=== PATIENT | female | born 1980 | race Caucasian/White ===

== ENCOUNTER 2016-09-09 14:46 | Emergency (ER) | payer OTHER ==
[~2016-09-09] VITALS: Ht 160 cm; Wt 59.1 kg
[2016-09-09 14:47] VITALS: TEMP 36.9; Ht 160 cm; Wt 59.1 kg
[2016-09-09] MEDS ORDERED: KETOROLAC TROMETHAMINE 60 MG/2 ML VIAL IM STA (14:59)
[2016-09-09] MEDS ORDERED: HYDROmorphone INJ 1 MG/ML SYR IM STA (14:59)
[2016-09-09] MEDS ORDERED: PROMETHAZINE HCL INJ 50 MG/ML 1 ML VIAL/AMP IM ONE (15:00)
[2016-09-09] MEDS ORDERED: ONDA4TAB10 SL (15:03)
--- NOTE | 2016-09-09 15:08 | EMERGENCY ROOM VISIT NOTE ---
History First contact with patient: 14:53 Chief Complaint: HEADACHE Stated Complaint: MIGRAINE W/NAUSEA History of Present Illness The patient is a 35 year old female who presents to the Emergency Room with complaints of a migraine headache since yesterday. The patient reports nausea and vomiting yesterday, but has only had nausea today. She reports photophobia and phonophobia. The patient has a history of chronic migraines, and is seen here frequently for her migraines. She is currently in the process of switching from [facility] to the [facility] due to a change in her insurance coverage. The patient is requesting a prescription for Zofran ODT which she has run out of. She denies any recent head injury, upper respiratory infection, sinus congestion or risk of carbon monoxide exposure. She rates her headache a 9 out of 10. Past Medical/Surgical History Medical Problems: (1) Bronchitis (2) Contusion of fourth toe of right foot (3) Fracture of fourth toe, right, closed (4) Sinusitis (5) Toothache (6) Ulcer Surgical Problems: (1) Tonsillectomy and adenoidectomy Family History FH: cancer Seizures Social History Smoking Status: Current Every Day Smoker Alcohol Use: none Drug Use: none Marital Status: Housing Status: lives with roommate Occupation Status: unemployed Current/Historical Medications Scheduled Amitriptyline HCl (Amitriptyline HCl), 10 MG PO HS Levonorgestrel (Iud) (Mirena), 20 MCG INT UTER UD Multiple Vitamin (Multi Vitamin Daily), 1 TAB PO DAILY Ondasetron Odt (Zofran Odt), 4 MG SL Q6H Scheduled PRN Acetaminophen (Tylenol), 1,000 MG PO Q4H PRN for Headache or Pain Cyclobenzaprine Hcl (Flexeril), 10 MG PO HS PRN for Muscle Spasm Ibuprofen Tab (Advil), 400-800 MG PO Q6H PRN for Headache or Pain Ondasetron Odt (Zofran Odt), 4 MG SL Q8 PRN for Nausea Pseudoephedrine Hcl (Sudafed), 30-60 MG PO Q4H PRN for Headache Rizatriptan Benzoate (Rizatriptan Benzoate), 10 MG PO UD PRN for Migraine Allergies Coded Allergies: Amoxicillin (Verified Allergy, Intermediate, HIVES, 04/06/16) Penicillins (Verified Allergy, Intermediate, HIVES (AMOXIL), 04/06/16) Physical Exam Vital Signs Date Time Temp Pulse Resp B/P Pulse Ox O2 Delivery O2 Flow Rate FiO2 09/09/16 14:47 36.9 110 16 128/71 97 Room Air Physical Exam CONSTITUTIONAL: Healthy and well nourished. Alert and oriented X 3 with positive affect. HEENT: Normocephalic, atraumatic. Pupils equal, round and reactive. Patient is photophobic, precluding funduscopic exam. NECK: Full active range of motion without discomfort. RESPIRATORY: Clear to auscultation bilaterally with no wheezing, crackles, rhonchi or stridor. CARDIOVASCULAR: Regular rate and rhythm with no murmurs, rubs or gallops. GASTROINTESTINAL: Bowel sounds present in all quadrants. MUSCULOSKELETAL: Full range of motion of all joints without discomfort. INTEGUMENTARY: No rash or other significant dermatologic conditions noted. NEUROLOGIC: No focal neurologic deficits noted. Normal finger to nose test. Negative pronator drift. No ataxia with ambulation. Medical Decision & Procedures ED Course Patient history and physical exam were performed. Nurse's notes were reviewed. The patient is currently on a treatment plan of 2 narcotic injections monthly. This is her first visit of the month. The patient was administered Dilaudid 3 mg, Phenergan 50 mg and Toradol 60 mg IM. She was instructed to follow-up with her PCP/neurologist for further migraine management. She was provided a prescription for Zofran 4 mg ODT, dispensed #30 with no refills until she can see her new PCP. She may return to the emergency department as needed for progressively worsening headache, fever or other concerning neurologic symptoms. The patient was happy with plan of care, and rated her migraine a 7 out of 10 at the time of discharge. Medical Decision Patient presents to the emergency department for evaluation of a migraine headache. The patient has a history of chronic migraines, and reports that this headache is similar. At this point, I do not feel that further imaging or laboratory studies are warranted. I do not suspect intracranial bleed, abscess , meningitis, CVA/TIA or carbon monoxide poisoning. Impression Primary Impression: Migraine Departure Information Dispostion Home / Self-Care Prescriptions Ondasetron Odt (ZOFRAN ODT) 4 Mg Tab 4 MG SL Q6H for Nausea, #30 TAB Prov: Leon Mackenzie PA 09/09/16 Referrals No Doctor, Assigned (PCP) Forms HOME CARE DOCUMENTATION FORM, IMPORTANT VISIT INFORMATION Patient Instructions A Signature Page[facility] Additional Instructions Follow-up with your PCP/neurologist as needed for further migraine management. You have been provided a prescription for Zofran ODT until you can see your family doctor for further prescription management.
[2016-09-09 15:35] VITALS: BP 120/75; PULSE 99; O2SAT 98
[2017-03-18] MEDS ORDERED: AMT10 PO (14:30)
[2017-03-18] MEDS ORDERED: IMTIN5 (14:34)
[2017-03-18] MEDS ORDERED: IBUP-103 PO (14:45)
[2017-03-18] MEDS ORDERED: TYLOTC500 PO (14:45)
[2017-03-18] MEDS ORDERED: PSEU30TA64 PO (14:45)
[2017-03-18] MEDS ORDERED: MULT-884 PO (14:45)
[2017-03-18] MEDS ORDERED: CYCL10TA6 PO (15:04)
[2017-03-18] MEDS ORDERED: ASPI-390 PO (15:09)
[2017-03-18] MEDS ORDERED: ONDA4TAB10 SL (15:20)
[2017-03-18] MEDS ORDERED: LEVOIUD INT UTER (16:09)
[2017-03-18] MEDS ORDERED: RIZA1TAB11 PO (16:27)
== END 2016-09-09 15:37 | disposition home or self-care (01) ==
LOC: C.EDB 14:47 → C.EDD 15:37
DX: G43.909 Migraine, unspecified, not intractable, without status migrainosus (principal); F17.200 Nicotine dependence, unspecified, uncomplicated

== ENCOUNTER 2016-09-21 16:39 | Emergency (ER) | payer OTHER ==
[~2016-09-21] VITALS: Ht 162.6 cm; Wt 56.4 kg
[~2016-09-21 16:39] MED LIST: ONDA4TAB10 SL
[2016-09-21 16:53] VITALS: TEMP 36.8; Ht 162.6 cm; Wt 56.4 kg
[2016-09-21] MEDS ORDERED: HYDROmorphone INJ 2 MG/ML SYR/VIAL IM STA (17:02)
[2016-09-21] MEDS ORDERED: PROMETHAZINE HCL INJ 25 MG/ML 1 ML VIAL IM STA (17:02)
[2016-09-21] MEDS ORDERED: KETOROLAC TROMETHAMINE 60 MG/2 ML VIAL IM STA (17:02)
--- NOTE | 2016-09-21 17:16 | EMERGENCY ROOM VISIT NOTE ---
History First contact with patient: 16:56 Chief Complaint: HEADACHE Stated Complaint: MIGRAINE,NAUSEA History of Present Illness The patient is a 35 year old female who presents to the Emergency Room with complaints of migraine headache which started yesterday. The patient states the pain is over the entire frontal region of her head. She describes it as a "throbbing in nature". The patient denies any dizziness or visual changes. The patient does admit to nausea but denies any vomiting. The patient states the symptoms are typical for her migraine headache. She states this is not the worst headache of her life. Review of Systems 10 system review was performed and was negative unless stated otherwise history of present illness. Past Medical/Surgical History Medical Problems: (1) Bronchitis (2) Contusion of fourth toe of right foot (3) Fracture of fourth toe, right, closed (4) Sinusitis (5) Toothache (6) Ulcer Surgical Problems: (1) Tonsillectomy and adenoidectomy Family History FH: cancer Seizures Social History Smoking Status: Current Every Day Smoker Alcohol Use: none Drug Use: none Marital Status: Housing Status: lives with roommate Occupation Status: unemployed Current/Historical Medications Scheduled Amitriptyline HCl (Amitriptyline HCl), 10 MG PO HS Levonorgestrel (Iud) (Mirena), 20 MCG INT UTER UD Multiple Vitamin (Multi Vitamin Daily), 1 TAB PO DAILY Ondasetron Odt (Zofran Odt), 4 MG SL Q6H Scheduled PRN Acetaminophen (Tylenol), 1,000 MG PO Q4H PRN for Headache or Pain Cyclobenzaprine Hcl (Flexeril), 10 MG PO HS PRN for Muscle Spasm Ibuprofen Tab (Advil), 400-800 MG PO Q6H PRN for Headache or Pain Ondasetron Odt (Zofran Odt), 4 MG SL Q8 PRN for Nausea Pseudoephedrine Hcl (Sudafed), 30-60 MG PO Q4H PRN for Headache Rizatriptan Benzoate (Rizatriptan Benzoate), 10 MG PO UD PRN for Migraine Allergies Coded Allergies: Amoxicillin (Verified Allergy, Intermediate, HIVES, 04/06/16) Penicillins (Verified Allergy, Intermediate, HIVES (AMOXIL), 04/06/16) Physical Exam Vital Signs Date Time Temp Pulse Resp B/P Pulse Ox O2 Delivery O2 Flow Rate FiO2 09/21/16 16:53 36.8 93 20 113/90 98 Room Air Physical Exam GENERAL: 35-year-old white female appears lying in a darkened room in no acute distress. MENTAL STATUS: Patient is alert and oriented x3 EYES: PERRLA. EOMs intact. EARS: Canals clear. TMs without fluid level noted. NECK: Supple, no lymphadenopathy noted. No carotid bruits noted. LUNGS: Clear auscultation without wheezes rales or rhonchi. CARDIAC: Regular rate and rhythm without murmur. Pulses is full and equal throughout. ABDOMEN: Positive bowel sounds all 4 quadrants. Soft, nontender to palpation without organomegaly or masses. NEURO:Cranial nerves two through 12 intact. Cerebellar function intact with [id number]. Fine motor intact with alternating finger motions. Medical Decision & Procedures ED Course The patient was evaluated. The patient is on a 2 injection per month treatment plan for her migraine headaches. This will be her second injection of the month. The patient was given her normal regimen of Dilaudid 3 mg IM, Toradol 60 mg IM and Phenergan 50 mg IM. The patient was reevaluated was feeling better. The patient was discharged home in stable condition. Medical Decision Differential includes: Acute intracranial bleed, trauma, meningitis, encephalitis, increased intracranial pressure, mass or mass effect, facial or dental infection, temporal arteritis, CVA, TIA, acute hypertensive emergency, sinusitis, carbon monoxide exposure. The patient presented with her typical migraine headache symptoms therefore no additional diagnostic imaging was performed. Impression Primary Impression: Migraine Departure Information Dispostion Home / Self-Care Condition GOOD Referrals No Doctor, Assigned (PCP) Adriana Toscano M.D. Forms HOME CARE DOCUMENTATION FORM, IMPORTANT VISIT INFORMATION Patient Instructions ED Headache Migraine, My [facility] Additional Instructions Go home and rest in a dark room. Do not drive for the remainder of the day. Follow-up with Dr. Oliveros it symptoms persist or worsen,. Problem Qualifiers Primary Impression: Migraine
[2016-09-21 17:37] VITALS: BP 123/85; PULSE 84; O2SAT 93
[2017-03-18] MEDS ORDERED: AMT10 PO (14:30)
[2017-03-18] MEDS ORDERED: IMTIN5 (14:34)
[2017-03-18] MEDS ORDERED: TYLOTC500 PO (14:45)
[2017-03-18] MEDS ORDERED: MULT-884 PO (14:45)
[2017-03-18] MEDS ORDERED: PSEU30TA64 PO (14:45)
[2017-03-18] MEDS ORDERED: IBUP-103 PO (14:45)
[2017-03-18] MEDS ORDERED: CYCL10TA6 PO (15:04)
[2017-03-18] MEDS ORDERED: ASPI-390 PO (15:09)
[2017-03-18] MEDS ORDERED: ONDA4TAB10 SL (15:20)
[2017-03-18] MEDS ORDERED: LEVOIUD INT UTER (16:09)
[2017-03-18] MEDS ORDERED: RIZA1TAB11 PO (16:27)
== END 2016-09-21 17:38 | disposition home or self-care (01) ==
LOC: C.EDB 16:41 → C.EDD 17:38
DX: G43.909 Migraine, unspecified, not intractable, without status migrainosus (principal); F17.200 Nicotine dependence, unspecified, uncomplicated; Z87.81 Personal history of (healed) traumatic fracture; Z86.19 Personal history of other infectious and parasitic diseases; Z79.899 Other long term (current) drug therapy; Z98.890 Other specified postprocedural states; Z88.0 Allergy status to penicillin; Z88.1 Allergy status to other antibiotic agents; Z80.9 Family history of malignant neoplasm, unspecified; Z82.0 Family history of epilepsy and other diseases of the nervous system

== ENCOUNTER 2016-10-06 19:45 | Emergency (ER) | payer OTHER ==
[~2016-10-06] VITALS: Ht 160 cm; Wt 56.2 kg
[2016-10-06 19:51] VITALS: TEMP 36.8; Ht 160 cm; Wt 56.2 kg
[2016-10-06] MEDS ORDERED: KETOROLAC TROMETHAMINE 60 MG/2 ML VIAL IM STA (20:05)
[2016-10-06] MEDS ORDERED: HYDROmorphone INJ 2 MG/ML SYR/VIAL IM STA (20:05)
[2016-10-06] MEDS ORDERED: PROMETHAZINE HCL INJ 25 MG/ML 1 ML VIAL IM STA (20:05)
--- NOTE | 2016-10-06 20:10 | EMERGENCY ROOM VISIT NOTE ---
ED Visit Note First contact with patient: 19:55 CHIEF COMPLAINT: Migraine headache HISTORY OF PRESENT ILLNESS: This 35-year-old female patient presented to the emergency department via private vehicle with a gradual onset of a severe generalized headache that started last night as she was preparing for a job interview today. The patient states the migraine is similar to their typical migraines. There has been associated photophobia, phonophobia, nausea but no vomiting. The patient denies fever or chills recently, and there is no weakness or numbness of the extremities. There is no difficulty with speech or vision. No trauma to the head and no neck pain. The pain is severe, constant, and it is slowly increasing in severity. The patient rates the pain as 8/10. The patient has taken Maxalt and 3 Zofran with minimal relief. This is not the worst headache of the life and is similar to previous migraines. Patient has an upcoming appointment on October 11 with any family doctor. Her neurologist is Dr. Toscano. Previous imaging studies of the brain have been normal. REVIEW OF SYSTEMS: A review of systems was performed with positives and pertinent negatives listed in the history of present illness. All other systems were reviewed and are negative. ALLERGIES: Amoxicillin and penicillin MEDICATIONS: As noted below PMH: As noted below SOCIAL HISTORY: Patient lives at home with hyacinth. She admits to tobacco use but denies alcohol use. PHYSICAL EXAM: Vital Signs: Reviewed Nurse's notes, vital signs stable. GENERAL : 35-year-old female, who appears in pain, but non toxic in appearance and in no acute distress. MENTAL STATUS: Alert, oriented, and coherent. HEENT: Normocephalic. PERRLA. EOMI. Nares patent without nuchal rigidity. Tympanic membranes pearly melton without erythema or effusion bilaterally. Mucous membranes moist. NECK: Supple, no nuchal rigidity, nontender, no lymphadenopathy. HEART: Regular rhythm and normal rate without murmurs, ectopy, gallops, or rubs. LUNGS: Clear to auscultation bilaterally without wheezes, rales or rhonchi. No dullness to percussion. No accessory muscle use. No retractions. SKIN: Normal. NEUROLOGICAL: Pupils are round, equal and react to light. The patient moves all extremities well and the gait is normal. EMERGENCY DEPARTMENT COURSE: I examined the patient. The patient is on a 2 narcotic injection per month treatment plan for their migraines. The patient was given 3 mg of Dilaudid IM, 50 mg Phenergan, 60mg Toradol IM per their usual protocol. The differential diagnosis includes acute intracranial bleed, meningitis, encephalitis, mass or mass effect, sinusitis, infection, tumor, headache, temporal arteritis and carbon monoxide exposure, and migraine. Patient was observed for greater than 15 minutes to ensure her pulse oxygenation did not drop when unsafe level. She was monitored with continuous pulse ox. After injection she was 96% on room air. The patient was discharged home in stable condition with TAXI driving. DIAGNOSIS: Migraine headache Problem List Medical Problems: (1) Bronchitis Status: Resolved (2) Contusion of fourth toe of right foot Status: Resolved (3) Fracture of fourth toe, right, closed Status: Resolved (4) Sinusitis Status: Resolved (5) Toothache Status: Resolved (6) Ulcer Status: Resolved Surgical Problems: (1) Tonsillectomy and adenoidectomy Status: Resolved Current/Historical Medications Scheduled Amitriptyline HCl (Amitriptyline HCl), 10 MG PO HS Levonorgestrel (Iud) (Mirena), 20 MCG INT UTER UD Multiple Vitamin (Multi Vitamin Daily), 1 TAB PO DAILY Ondasetron Odt (Zofran Odt), 4 MG SL Q6H Scheduled PRN Acetaminophen (Tylenol), 1,000 MG PO Q4H PRN for Headache or Pain Cyclobenzaprine Hcl (Flexeril), 10 MG PO HS PRN for Muscle Spasm Ibuprofen Tab (Advil), 400-800 MG PO Q6H PRN for Headache or Pain Ondasetron Odt (Zofran Odt), 4 MG SL Q8 PRN for Nausea Pseudoephedrine Hcl (Sudafed), 30-60 MG PO Q4H PRN for Headache Rizatriptan Benzoate (Rizatriptan Benzoate), 10 MG PO UD PRN for Migraine Allergies Coded Allergies: Amoxicillin (Verified Allergy, Intermediate, HIVES, 04/06/16) Penicillins (Verified Allergy, Intermediate, HIVES (AMOXIL), 04/06/16) Vital Signs Date Time Temp Pulse Resp B/P Pulse Ox O2 Delivery O2 Flow Rate FiO2 10/06/16 19:51 36.8 81 18 121/85 94 Room Air Departure Information Impression Primary Impression: Headache Dispostion Home / Self-Care Condition GOOD Referrals No Doctor, Assigned (PCP) Patient Instructions My [facility] Additional Instructions You have been treated in the Emergency Department for a Headache. You have received pain medicine in the emergency department which impairs your ability to operate a vehicle. It is illegal for you to drive after receiving these medicines. For pain control, you can use the following [id number] medicines (if >12 yo): - Regular strength (325mg/tab) Tylenol (acetaminophen) 2 tabs every 4-6 hours as needed. Do not exceed 12 tablets in a 24 hour period. Avoid taking more than 4 grams (4000 mg) of Tylenol per day. This includes any other sources of acetaminophen you may take on a regular basis. - Regular strength (200 mg/tab) Advil (ibuprofen) 1-2 tabs every 4-6 hours as needed. Do not exceed a dose of 3200 mg per day. You should relax in a quiet, dark place for the rest of the day. Avoid any possible triggers including: cigarette smoke, caffeine, nicotine, chocolate, wine, beer, loud noises or music, or bright lights. You should schedule a follow-up appointment in 2-3 days with your Primary Care Provider or established Neurologist for further evaluation and treatment of your Headache. Return to the Emergency Department if your current symptoms worsen despite treatment course outlined above, or if you develop any of the following symptoms : intractable pain despite aforementioned treatment course, visual disturbances , loss of vision, unilateral weakness or facial drooping, slurring of speech, loss of coordination, or loss of consciousness. Please return to the emergency department with any new/concerning symptoms. Problem Qualifiers Primary Impression: Headache Headache chronicity pattern: acute headache Intractability: not intractable
[2016-10-06 20:37] VITALS: O2SAT 96
[2016-10-06 20:41] VITALS: BP 137/89; PULSE 77; O2SAT 96
[2017-03-18] MEDS ORDERED: AMT10 PO (14:30)
[2017-03-18] MEDS ORDERED: IMTIN5 (14:34)
[2017-03-18] MEDS ORDERED: TYLOTC500 PO (14:45)
[2017-03-18] MEDS ORDERED: PSEU30TA64 PO (14:45)
[2017-03-18] MEDS ORDERED: MULT-884 PO (14:45)
[2017-03-18] MEDS ORDERED: IBUP-103 PO (14:45)
[2017-03-18] MEDS ORDERED: CYCL10TA6 PO (15:04)
[2017-03-18] MEDS ORDERED: ASPI-390 PO (15:09)
[2017-03-18] MEDS ORDERED: ONDA4TAB10 SL (15:20)
[2017-03-18] MEDS ORDERED: LEVOIUD INT UTER (16:09)
[2017-03-18] MEDS ORDERED: RIZA1TAB11 PO (16:27)
== END 2016-10-06 20:43 | disposition home or self-care (01) ==
LOC: C.EDB 19:46 → C.EDD 20:43
DX: G43.909 Migraine, unspecified, not intractable, without status migrainosus (principal); F17.200 Nicotine dependence, unspecified, uncomplicated; Z88.0 Allergy status to penicillin; Z88.1 Allergy status to other antibiotic agents; Z87.81 Personal history of (healed) traumatic fracture; Z87.828 Personal history of other (healed) physical injury and trauma; Z86.19 Personal history of other infectious and parasitic diseases; Z79.899 Other long term (current) drug therapy; Z98.890 Other specified postprocedural states

== ENCOUNTER 2016-10-15 17:14 | Emergency (ER) | payer OTHER ==
[~2016-10-15] VITALS: Ht 162.6 cm; Wt 56.9 kg
[2016-10-15 17:18] VITALS: Ht 162.6 cm; Wt 56.9 kg
[2016-10-15] MEDS ORDERED: KETOROLAC TROMETHAMINE 60 MG/2 ML VIAL IM STA (17:47)
[2016-10-15] MEDS ORDERED: HYDROmorphone INJ 1 MG/ML SYR IM STA (17:47)
[2016-10-15] MEDS ORDERED: PROMETHAZINE HCL INJ 25 MG/ML 1 ML VIAL IM STA (17:47)
[2016-10-15 18:23] VITALS: BP 133/75; PULSE 81; TEMP 37.1; O2SAT 95
--- NOTE | 2016-10-16 00:30 | EMERGENCY ROOM VISIT NOTE ---
History First contact with patient: 17:35 Chief Complaint: HEADACHE Stated Complaint: MIGRAINE W/NAUSEA History of Present Illness The patient is a 35 year old female who presents to the Emergency Room with complaints of a migraine headache. The patient is well-known to the emergency department with history of chronic migraines. She reports that her headache started yesterday morning. Her nausea has worsened. The patient reports that she is under a lot of stress right now with a new job. She has not been sleeping well. Otherwise she reports that her headache is similar to all prior migraines, and not the worse headache of her life. She denies any recent infections, headache injury or risk of carbon monoxide exposure. She rates her headache a 9 out of 10. The patient reports that she did recently [employer] insurance, and saw all Estelle Purvis PA-C. She was provided a prescription for Imitrex nasal sprays and Wellbutrin, but has not had a chance to fill her prescriptions. Review of Systems 10 system review was performed and was negative except for pertinent positives and negatives as indicated in history of present illness Past Medical/Surgical History Medical Problems: (1) Bronchitis (2) Contusion of fourth toe of right foot (3) Fracture of fourth toe, right, closed (4) Sinusitis (5) Toothache (6) Ulcer Surgical Problems: (1) Tonsillectomy and adenoidectomy Family History FH: cancer Seizures Social History Smoking Status: Current Every Day Smoker Alcohol Use: none Drug Use: none Marital Status: Housing Status: lives with roommate Occupation Status: unemployed Current/Historical Medications Scheduled Amitriptyline HCl (Amitriptyline HCl), 10 MG PO HS Bupropion (Wellbutrin), 75 MG PO BID Levonorgestrel (Iud) (Mirena), 20 MCG INT UTER UD Multiple Vitamin (Multi Vitamin Daily), 1 TAB PO DAILY Scheduled PRN Acetaminophen (Tylenol), 1,000 MG PO Q4H PRN for Headache or Pain Cyclobenzaprine Hcl (Flexeril), 10 MG PO HS PRN for Muscle Spasm Ibuprofen Tab (Advil), 400-800 MG PO Q6H PRN for Headache or Pain Ondasetron Odt (Zofran Odt), 4 MG SL Q8 PRN for Nausea Pseudoephedrine Hcl (Sudafed), 30-60 MG PO Q4H PRN for Headache Rizatriptan Benzoate (Rizatriptan Benzoate), 10 MG PO UD PRN for Migraine Allergies Coded Allergies: Amoxicillin (Verified Allergy, Intermediate, HIVES, 04/06/16) Penicillins (Verified Allergy, Intermediate, HIVES (AMOXIL), 04/06/16) Physical Exam Vital Signs Date Time Temp Pulse Resp B/P Pulse Ox O2 Delivery O2 Flow Rate FiO2 10/15/16 18:23 37.1 81 18 133/75 95 10/15/16 17:18 37.1 81 18 133/75 95 Room Air Pain Rating (0-10): 0 Physical Exam CONSTITUTIONAL: Healthy and well nourished. Alert and oriented X 3 with positive affect. HEENT: Normocephalic, atraumatic. Pupils equal, round and reactive. Patient is photophobic, precluding funduscopic exam. NECK: Full active range of motion without discomfort. No JVD or carotid bruits. RESPIRATORY: Clear to auscultation bilaterally with no wheezing, crackles, rhonchi or stridor. CARDIOVASCULAR: Regular rate and rhythm with no murmurs, rubs or gallops. INTEGUMENTARY: No rash or other significant dermatologic conditions noted. NEUROLOGIC: No focal neurologic deficits noted. No ataxia with ambulation. Medical Decision & Procedures Medications Administered Medications (Trade) Dose Ordered Sig/Kirby Route Start Time Stop Time Status Last Admin Dose Admin Hydromorphone HCl (Dilaudid Inj) 3 mg ONE STAT IM 10/15/16 17:47 10/15/16 17:49 DC 10/15/16 18:22 3 MG Promethazine HCl (Phenergan Inj) 50 mg NOW STAT IM 10/15/16 17:47 10/15/16 17:49 DC 10/15/16 18:22 50 MG Ketorolac Tromethamine (Toradol Inj) 60 mg NOW STAT IM 10/15/16 17:47 10/15/16 17:49 DC 10/15/16 18:22 60 MG ED Course Patient history and physical exam were performed. Nurse's notes were reviewed. The patient is currently on a treatment plan of 2 narcotic injections monthly. The patient was administered Dilaudid 3 mg, Toradol 60 mg and Phenergan 50 mg IM. This is her typical dosing regimen. The patient denied any pain at the time of discharge. The patient was instructed to rest and remain hydrated. She was instructed to follow-up with Estelle Purvis for further migraine management. The patient voiced understanding of all discharge instructions, and was happy with plan of care. Medical Decision Patient presents with symptoms consistent with her usual migraine phenomenon. The patient reports that it is not the worse headache of her life. Based on history and physical exam findings, I do not suspect meningitis, CVA/TIA, intracranial bleed, abscess, thromboembolic event or carbon monoxide poisoning. Impression Primary Impression: Migraine Departure Information Dispostion Home / Self-Care Condition GOOD Referrals Estelle Purvis (PCP) Forms HOME CARE DOCUMENTATION FORM, IMPORTANT VISIT INFORMATION [facility] Instructions [facility] Additional Instructions Rest and remain well-hydrated. Follow-up with Estelle Purvis as needed for further migraine management. Problem Qualifiers Primary Impression: Migraine Migraine type: chronic without aura Status migrainosus presence: without status migrainosus Intractability: not intractable Qualified Codes: G43.709 - Chronic migraine without aura, not intractable, without status migrainosus
[2017-03-18] MEDS ORDERED: AMT10 PO (14:30)
[2017-03-18] MEDS ORDERED: IMTIN5 (14:34)
[2017-03-18] MEDS ORDERED: MULT-884 PO (14:45)
[2017-03-18] MEDS ORDERED: PSEU30TA64 PO (14:45)
[2017-03-18] MEDS ORDERED: IBUP-103 PO (14:45)
[2017-03-18] MEDS ORDERED: TYLOTC500 PO (14:45)
[2017-03-18] MEDS ORDERED: CYCL10TA6 PO (15:04)
[2017-03-18] MEDS ORDERED: ASPI-390 PO (15:09)
[2017-03-18] MEDS ORDERED: ONDA4TAB10 SL (15:20)
[2017-03-18] MEDS ORDERED: LEVOIUD INT UTER (16:09)
[2017-03-18] MEDS ORDERED: RIZA1TAB11 PO (16:27)
== END 2016-10-15 18:24 | disposition home or self-care (01) ==
LOC: C.EDB 17:15 → C.EDD 18:24
DX: G43.909 Migraine, unspecified, not intractable, without status migrainosus (principal); F17.210 Nicotine dependence, cigarettes, uncomplicated; Z87.81 Personal history of (healed) traumatic fracture; Z86.19 Personal history of other infectious and parasitic diseases; Z87.828 Personal history of other (healed) physical injury and trauma; Z98.890 Other specified postprocedural states; Z88.0 Allergy status to penicillin; Z88.1 Allergy status to other antibiotic agents

== ENCOUNTER 2016-11-04 14:07 | Emergency (ER) | payer OTHER ==
[~2016-11-04] VITALS: Ht 160 cm; Wt 57.6 kg
[2016-11-04 14:14] VITALS: TEMP 37; Ht 160 cm; Wt 57.6 kg
[2016-11-04] MEDS ORDERED: PROMETHAZINE HCL INJ 25 MG/ML 1 ML VIAL IM STA (15:17)
[2016-11-04] MEDS ORDERED: HYDROmorphone HCL 4 MG/ML SYR IM STA (15:17)
[2016-11-04] MEDS ORDERED: KETOROLAC TROMETHAMINE 60 MG/2 ML VIAL IM STA (15:17)
[2016-11-04] MEDS ORDERED: HYDR-5688 PO (15:36)
[2016-11-04] MEDS ORDERED: CIPR0.3S OP (15:36)
[2016-11-04 16:03] VITALS: BP 126/91; PULSE 81; O2SAT 96
--- NOTE | 2016-11-05 21:30 | EMERGENCY ROOM VISIT NOTE ---
ED Visit Note First contact with patient: 14:21 CHIEF COMPLAINT: Migraine headache and I poked myself in the right eye. HISTORY OF PRESENT ILLNESS: Ms. Archuleta is a 36 year-old white female who ambulates into the ED complaining of a migraine headache in the right eye injury. She reports a gradual onset of a severe migraine headache that started approximately 6 hours ago. The pain is constant and it is slowly increasing in severity. This is not the worst headache of the life and is similar to previous migraines. Currently she describes the headache as a throbbing sensation/pain in the left frontal and behind the eye areas. She rates the pain a 9/10. The pain is nonradiating. She has not identified any aggravating or alleviating factors related to the pain. She reports taking Rizatriptan, amitriptyline Migraine Excedrin without relief of pain. There is been associated light sensitivity, nausea without vomiting. She denies fevers, chills, sweats, skin eruptions, skin color changes, dizziness , lightheadedness, recent head trauma, abnormal neurological symptoms, neck pain /stiffness, chest pain, shortness of breath, abdominal pain, extremity weakness/ numbness/tingling. Additionally she reports approximately 3-4 hours ago she was trying to thin help her eyelashes by using a toothpick and accidentally poked her right eye. She reported her immediately after the injury she had some mild blurry but that has subsequently resolved. She does report currently she has a burning and throbbing sensation in the eye. She rates this discomfort 7/10. The pain is nonradiating. Her pain slightly worsens with blinking. Associated with her pain she is light sensitive and has noted some mild tearing. REVIEW OF SYSTEMS: As noted above in History of Present Illness; all body systems were reviewed with the patient and found to be negative unless noted above otherwise. PAST MEDICAL HISTORY: Migraines headaches, bronchitis, gallbladder disease, status post tonsillectomy and adenoidectomy. CURRENT MEDICATION: Medications Dose Route/Sig Max Daily Dose Days Date Category Dose Instructions Imitrex Nasal [place] (Sumatriptan Succinate) 5 Mg Aers 1 [place] NA UD PRN 11/04/16 Reported 2 SPRAYS MAX PER DAY Wellbutrin (Bupropion HCl) 75 Mg Tab 75 Mg PO BID 10/15/16 Reported Zofran Odt (Ondansetron HCl) 4 Mg Tab 4 Mg SL Q8 PRN 02/08/16 Reported Mirena (Levonorgestrel (Iud)) 20 Mcg/24 Hr Iud 20 Mcg INT UTER UD 02/03/15 Reported Amitriptyline HCl 10 Mg Tab 10 Mg PO HS 01/11/15 Reported Rizatriptan Benzoate 10 Mg Tab 10 Mg PO UD PRN 12/09/14 Reported Flexeril (Cyclobenzaprine Hcl) 10 Mg Tab 10 Mg PO HS PRN 12/04/14 Reported Sudafed (Pseudoephedrine Hcl) 30 Mg Tab 30-60 Mg PO Q4H PRN 09/13/14 Reported Multi Vitamin Daily (Multiple Vitamin) 1 Tab Tab 1 Tab PO DAILY 09/13/14 Reported Advil (Ibuprofen) 200 Mg Tab 400-800 Mg PO Q6H PRN 09/13/14 Reported Tylenol (Acetaminophen) 500 Mg Tab 1,000 Mg PO Q4H PRN 09/13/14 Reported ALLERGIES TO MEDICATION: Penicillin. SOCIAL HISTORY: Patient is not employed; she feels safe in her home environment ; she admits to tobacco use; she denies alcohol use. PHYSICAL EXAM: Vital Signs: Date Time Temp Pulse Resp B/P Pulse Ox O2 Delivery O2 Flow Rate FiO2 11/04/16 16:03 81 16 126/91 96 11/04/16 14:14 37.0 89 18 131/93 95 Room Air GENERAL: 36 year-old white female in moderate distress due to pain, afebrile and hemodynamically stable. Found lying in a darkened room. NEUROLOGIC: Awake, alert and oriented to person place and time. Answering questions appropriately and following commands. Cranial nerves II-XII grossly intact. No focal neurologic deficits noted. Normal gait. Good hand eye coordination. Short-term and long-term recall intact. SKIN: Warm, dry and pink. No rashes, lesions or soft tissue trauma noted. HEENT: Normocephalic, atraumatic. Pupils equal, round and reactive. Extraocular movements intact and there is no nystagmus. Sclera anicteric. No foreign bodies noted under the eyelids are embedded cornea. Anterior chamber is clear. On slit lamp examination with staining patient has a significant sized abrasion over the medial portion of the cornea extending from the 2 to 5 o 'clock position. visual acuity 20/25 without correction. Ears, nose and oropharynx clear. Patient is photophobic precluding funduscopic exam. NECK: Soft and supple. No tenderness through the central cervical region or cervical musculature. No nuchal rigidity. Full range of motion of the cervical spine. No carotid bruits. No JVD. THORAX: Lungs clear to auscultation and equal bilaterally with no wheezing, crackles, rhonchi or stridor and equal chest wall movements. HEART: Regular rate and rhythm with no murmurs, rubs or gallops. ABDOMEN: Soft and nontender with bowel sounds present in all quadrants; no rigidity, rebound tenderness, organomegaly or guarding. MUSCULOSKELETAL: Full range of motion of all joints without any significant discomfort and the gait is normal. ED COURSE: The patient ambulates into the emergency department as noted above. Patient is assessed with history and physical examination. Patient was given 3 mg of the Dilaudid IM, 60 mg of Toradol IM and 25 mg of Phenergan IM for the pain and nausea. Alcaine was used to anesthetize the eye for examination and an additional 2 drops of Alcaine was used prior to discharge for patient comfort. Patient was reassessed. Patient was educated about her condition and instructed on her treatment plan; she verbalized understanding and agreement with this plan. CLINICAL IMPRESSION: Migraine headache. Corneal abrasion. DECISION MAKIN-year-old female who presents for evaluation of headache and eye injury. She is afebrile, well appearing, and hemodynamically stable. She has no signs of a sinus, dental, or ear infection and no evidence of meningismus. She is neurologically intact. I do not suspect a headache to be secondary to a subarachnoid hemorrhage, meningitis, encephalitis, or intracranial mass lesion. Her eye exam shows a corneal abrasion with no change in visual acuity. DISPOSITION: Patient was discharged to home in stable condition; prior to departure she was reassessed and subjectively reported she was feeling much better and rated her discomfort 5/10 and resolution of her discomfort due to Alcaine drops. DISCHARGE INSTRUCTIONS: Migraine headache Rest at home, in a quiet darkened room and allow the medication to work for the pain. Continue to follow up current treatment plan prescribed by your physician for your migraine headaches. See your own doctor in follow-up this week for continued care and treatment. Return to the emergency department as needed for worsening/uncontrolled pain, any new abnormal neurological symptoms, fevers, in accordance with her pain management plan or any new/concerning symptoms. Corneal abrasion Patient was prescribed Ciloxan ophthalmic drops and instructed on their use. Patient was placed on a sliding pain scale of ibuprofen, acetaminophen and [place] ; appropriate narcotic precautions were discussed with the patient. Patient was encouraged to follow-up with ophthalmology or return to the ED for recheck in 36-48 hours. Patient was encouraged return the ED for worsening eye pain, visual changes, headaches, fevers, vomiting or any new/concerning symptoms.
[2017-03-18] MEDS ORDERED: AMT10 PO (14:30)
[2017-03-18] MEDS ORDERED: IMTIN5 (14:34)
[2017-03-18] MEDS ORDERED: IBUP-103 PO (14:45)
[2017-03-18] MEDS ORDERED: MULT-884 PO (14:45)
[2017-03-18] MEDS ORDERED: TYLOTC500 PO (14:45)
[2017-03-18] MEDS ORDERED: PSEU30TA64 PO (14:45)
[2017-03-18] MEDS ORDERED: CYCL10TA6 PO (15:04)
[2017-03-18] MEDS ORDERED: ASPI-390 PO (15:09)
[2017-03-18] MEDS ORDERED: ONDA4TAB10 SL (15:20)
[2017-03-18] MEDS ORDERED: LEVOIUD INT UTER (16:09)
[2017-03-18] MEDS ORDERED: RIZA1TAB11 PO (16:27)
== END 2016-11-04 16:06 | disposition home or self-care (01) ==
LOC: C.EDB 14:09 → C.EDD 16:06
DX: G43.909 Migraine, unspecified, not intractable, without status migrainosus (principal); S05.01XA Injury of conjunctiva and corneal abrasion without foreign body, right eye, initial encounter; W26.8XXA Contact with other sharp object(s), not elsewhere classified, initial encounter; Y93.89 Activity, other specified; Y99.8 Other external cause status; Z72.0 Tobacco use; Z90.89 Acquired absence of other organs

== ENCOUNTER 2016-11-17 16:38 | Emergency (ER) | payer OTHER ==
[~2016-11-17 16:38] MED LIST changes: +HYDR-5688 PO; -ONDA4TAB10 SL
[2016-11-17 16:40] VITALS: TEMP 37
[2016-11-17] MEDS ORDERED: HYDROmorphone INJ 2 MG/ML SYR/VIAL IM ONE (17:00)
[2016-11-17] MEDS ORDERED: KETOROLAC TROMETHAMINE 60 MG/2 ML VIAL IM STA (17:00)
[2016-11-17] MEDS ORDERED: PROMETHAZINE HCL INJ 50 MG/ML 1 ML VIAL/AMP IM ONE (17:00)
[2016-11-17] MEDS ORDERED: HYDROmorphone INJ 1 MG/ML SYR IM ONE (17:00)
--- NOTE | 2016-11-17 17:00 | EMERGENCY ROOM VISIT NOTE ---
ED Visit Note First contact with patient: 16:43 CHIEF COMPLAINT: Migraine headache HISTORY OF PRESENT ILLNESS: This 36-year-old female patient presented to the emergency department this evening with a gradual onset of a severe generalized headache that started this morning. The patient states the migraine is similar to their typical migraines. There has been associated photophobia, phonophobia, nausea and vomiting. The patient denies fever or chills recently, and there is no weakness or numbness of the extremities. There is no difficulty with speech or vision. No trauma to the head and no neck pain. The pain is severe, constant , and it is slowly increasing in severity. The patient rates the pain as constant and 8/10. The patient has taken Imitrex and Zofran without relief of symptoms. This is not the worst headache of the life and is similar to previous migraines. Previous imaging studies of the brain have been normal. She follows with Dr. Adriana Toscano of neurology. REVIEW OF SYSTEMS: A review of systems was performed with positives and pertinent negatives listed in the history of present illness. All other systems were reviewed and are negative. ALLERGIES: Amoxicillin, Penicillins MEDICATIONS: Reviewed and discussed with the patient. PMH: No pertinent past medical history. SOCIAL HISTORY: Patient is a 36-year-old female who lives locally. PHYSICAL EXAM: VITAL SIGNS - Vital signs and nursing notes were reviewed. GENERAL - 36-year-old female appearing her stated age who is in no acute distress. Communicates well with provider and answers questions appropriately. HEAD - Normocephalic, Atraumatic. No Reeder's Sign or Raccoon's Eyes. No depressed skull fractures palpable. EYES - PERRL with EOMI bilaterally. Sclera anicteric. Palpebral conjunctiva pink and moist with no injection noted. EARS - No deformities of external structures noted on gross examination bilaterally. No pain elicited with palpation of the tragus bilaterally. External auditory canals without discharge or otorrhea. Tympanic membranes pearly melton without retraction or bulging. NOSE - Midline and without cyanosis. No epistaxis or purulent drainage noted. Septum midline without deviation or septal hematoma noted. MOUTH/OROPHARYNX - Without perioral cyanosis. Buccal mucosa pink and moist and without leukoplakia. Tongue midline with equal elevation of palate bilaterally. No tonsillar hypertrophy, erythema, or exudates noted. NECK - Neck with FROM. Supple to palpation. No lymphadenopathy noted. No nuchal rigidity. LUNGS - Chest wall symmetric without accessory muscle use, intercostals retractions, or central cyanosis. Normal vesicular breath sounds CTA B/L. No wheezes, rales, or rhonchi appreciated. CARDIAC - RRR with S1/S2. No murmur, rubs, or gallops appreciated. EXTREMITIES - No pretibial edema present. +3/5 radial and dorsalis pedis pulses palpated throughout. FROM with no tremors, fasciculations, or clonus noted on PROM throughout. +5/5 strength noted in UE/LE bilaterally. NEUROLOGIC - Cranial nerves II through XII grossly intact. Sensory intact to light touch throughout. Patellar reflexes +2/4. Patient able to perform rapid alternating movements appropriately. Negative Romberg and Pronator Drift. Negative [id number]. PSYCH - A&Ox3 and cooperates fully with examiner. Pt is very pleasant and interacts well with examiner. EMERGENCY DEPARTMENT COURSE: I examined the patient. The patient is on a narcotic injection per month treatment plan for their migraines. The patient was given 3 mg Dilaudid, 50 mg Phenergan, and 60 mg Toradol intramuscularly per their usual protocol. The differential diagnosis includes acute intracranial bleed, meningitis, encephalitis, mass or mass effect, sinusitis, infection, tumor, headache, temporal arteritis and carbon monoxide exposure, and migraine. The patient was discharged home in stable condition with a friend driving. DIAGNOSIS: Migraine headache DISCHARGE INSTRUCTIONS & TREATMENT: You have been treated in the Emergency Department for a Headache. You have received pain medicine in the emergency department which impairs your ability to operate a vehicle. It is illegal for you to drive after receiving these medicines. For pain control, you can use the following [id number] medicines (if >12 yo): - Regular strength (325mg/tab) Tylenol (acetaminophen) 2 tabs every 4-6 hours as needed. Do not exceed 12 tablets in a 24 hour period. Avoid taking more than 4 grams (4000 mg) of Tylenol per day. This includes any other sources of acetaminophen you may take on a regular basis. - Regular strength (200 mg/tab) Advil (ibuprofen) 1-2 tabs every 4-6 hours as needed. Do not exceed a dose of 3200 mg per day. You should relax in a quiet, dark place for the rest of the day. Avoid any possible triggers including: cigarette smoke, caffeine, nicotine, chocolate, wine, beer, loud noises or music, or bright lights. You should schedule a follow-up appointment in 2-3 days with your Primary Care Provider or established Neurologist for further evaluation and treatment of your Headache. Return to the Emergency Department if your current symptoms worsen despite treatment course outlined above, or if you develop any of the following symptoms : intractable pain despite aforementioned treatment course, visual disturbances , loss of vision, unilateral weakness or facial drooping, slurring of speech, loss of coordination, or loss of consciousness. Problem List Medical Problems: (1) Bronchitis Status: Resolved (2) Contusion of fourth toe of right foot Status: Resolved (3) Fracture of fourth toe, right, closed Status: Resolved (4) Sinusitis Status: Resolved (5) Toothache Status: Resolved (6) Ulcer Status: Resolved Surgical Problems: (1) Tonsillectomy and adenoidectomy Status: Resolved Current/Historical Medications Scheduled Amitriptyline HCl (Amitriptyline HCl), 10 MG PO HS Bupropion (Wellbutrin), 75 MG PO BID Levonorgestrel (Iud) (Mirena), 20 MCG INT UTER UD Multiple Vitamin (Multi Vitamin Daily), 1 TAB PO DAILY Scheduled PRN Acetaminophen (Tylenol), 1,000 MG PO Q4H PRN for Headache or Pain Cyclobenzaprine Hcl (Flexeril), 10 MG PO HS PRN for Muscle Spasm Ibuprofen Tab (Advil), 400-800 MG PO Q6H PRN for Headache or Pain Ondasetron Odt (Zofran Odt), 4 MG SL Q8 PRN for Nausea Pseudoephedrine Hcl (Sudafed), 30-60 MG PO Q4H PRN for Headache Rizatriptan Benzoate (Rizatriptan Benzoate), 10 MG PO UD PRN for Migraine Sumatriptan Succinate (Imitrex Nasal [place]), 1 SPRAY NA UD PRN for Headache Allergies Coded Allergies: Amoxicillin (Verified Allergy, Intermediate, HIVES, 11/04/16) Penicillins (Verified Allergy, Intermediate, HIVES (AMOXIL), 11/04/16) Vital Signs Date Time Temp Pulse Resp B/P Pulse Ox O2 Delivery O2 Flow Rate FiO2 3/15/17 17:52 86 16 135/84 97 11/17/16 16:40 37.0 88 18 142/85 96 Room Air Medications Administered Medications (Trade) Dose Ordered Sig/Kirby Route Start Time Stop Time Status Last Admin Dose Admin Hydromorphone HCl (Dilaudid Inj) 2 mg NOW ONCE IM 11/17/16 17:00 11/17/16 17:02 DC 11/17/16 17:19 2 MG Hydromorphone HCl (Dilaudid Inj) 1 mg NOW ONCE IM 11/17/16 17:00 11/17/16 17:02 DC 11/17/16 17:20 1 MG Ketorolac Tromethamine (Toradol Inj) 60 mg NOW STAT IM 11/17/16 17:00 11/17/16 17:02 DC 11/17/16 17:21 60 MG Promethazine HCl (Phenergan Inj) 50 mg NOW ONCE IM 11/17/16 17:00 11/17/16 17:02 DC 11/17/16 17:22 50 MG Departure Information Impression Primary Impression: Migraine Dispostion Home / Self-Care Condition GOOD Referrals No Doctor, Assigned (PCP) Patient Instructions [facility] Additional Instructions You have been treated in the Emergency Department for a Headache. You have received pain medicine in the emergency department which impairs your ability to operate a vehicle. It is illegal for you to drive after receiving these medicines. For pain control, you can use the following [id number] medicines (if >12 yo): - Regular strength (325mg/tab) Tylenol (acetaminophen) 2 tabs every 4-6 hours as needed. Do not exceed 12 tablets in a 24 hour period. Avoid taking more than 4 grams (4000 mg) of Tylenol per day. This includes any other sources of acetaminophen you may take on a regular basis. - Regular strength (200 mg/tab) Advil (ibuprofen) 1-2 tabs every 4-6 hours as needed. Do not exceed a dose of 3200 mg per day. You should relax in a quiet, dark place for the rest of the day. Avoid any possible triggers including: cigarette smoke, caffeine, nicotine, chocolate, wine, beer, loud noises or music, or bright lights. You should schedule a follow-up appointment in 2-3 days with your Primary Care Provider or established Neurologist for further evaluation and treatment of your Headache. Return to the Emergency Department if your current symptoms worsen despite treatment course outlined above, or if you develop any of the following symptoms : intractable pain despite aforementioned treatment course, visual disturbances , loss of vision, unilateral weakness or facial drooping, slurring of speech, loss of coordination, or loss of consciousness. Problem Qualifiers Primary Impression: Migraine Migraine type: unspecified Status migrainosus presence: without status migrainosus Intractability: not intractable Qualified Codes: G43.909 - Migraine, unspecified, not intractable, without status migrainosus
[2016-11-17 17:52] VITALS: BP 135/84; PULSE 86; O2SAT 97
[2017-03-18] MEDS ORDERED: AMT10 PO (14:30)
[2017-03-18] MEDS ORDERED: IMTIN5 (14:34)
[2017-03-18] MEDS ORDERED: PSEU30TA64 PO (14:45)
[2017-03-18] MEDS ORDERED: TYLOTC500 PO (14:45)
[2017-03-18] MEDS ORDERED: IBUP-103 PO (14:45)
[2017-03-18] MEDS ORDERED: MULT-884 PO (14:45)
[2017-03-18] MEDS ORDERED: CYCL10TA6 PO (15:04)
[2017-03-18] MEDS ORDERED: ASPI-390 PO (15:09)
[2017-03-18] MEDS ORDERED: ONDA4TAB10 SL (15:20)
[2017-03-18] MEDS ORDERED: LEVOIUD INT UTER (16:09)
[2017-03-18] MEDS ORDERED: RIZA1TAB11 PO (16:27)
== END 2016-11-17 17:54 | disposition home or self-care (01) ==
LOC: C.EDB 16:39 → C.EDD 17:54
DX: G43.909 Migraine, unspecified, not intractable, without status migrainosus (principal); Z79.899 Other long term (current) drug therapy

== ENCOUNTER 2016-12-16 14:57 | Emergency (ER) | payer OTHER ==
[~2016-12-16] VITALS: Ht 160 cm; Wt 58.5 kg
[2016-12-16 15:06] VITALS: TEMP 36.9; Ht 160 cm; Wt 58.5 kg
[2016-12-16] MEDS ORDERED: PROMETHAZINE HCL INJ 25 MG/ML 1 ML VIAL IM STA (15:12)
[2016-12-16] MEDS ORDERED: KETOROLAC TROMETHAMINE 60 MG/2 ML VIAL IM STA (15:12)
[2016-12-16] MEDS ORDERED: HYDROmorphone INJ 2 MG/ML SYR/VIAL IM STA (15:12)
--- NOTE | 2016-12-16 15:24 | EMERGENCY ROOM VISIT NOTE ---
ED Visit Note First contact with patient: 15:08 CHIEF COMPLAINT: Migraine headache HISTORY OF PRESENT ILLNESS: This 36-year-old female patient presented to the emergency department with a gradual onset of a severe generalized headache that started this morning. There has been associated photophobia, phonophobia, nausea and vomiting. The patient denies fever or chills recently, and there is no weakness or numbness of the extremities. There is no difficulty with speech or vision. No trauma to the head and no neck pain. The pain is severe, constant , and it is slowly increasing in severity. The patient rates the pain as severe and 8/10. The patient has taken nothing. This is not the worst headache of the life and is similar to previous migraines. Previous imaging studies of the brain (CT scans) have been normal. REVIEW OF SYSTEMS: An 8 system review of systems was completed with positives and pertinent negatives listed in the HPI. ALLERGIES: Amoxicillin, penicillin MEDICATIONS: See nursing notes PMH: Unchanged from previous SOCIAL HISTORY: The patient is a smoker. PHYSICAL EXAM: Vital Signs: Reviewed Nurse's notes, vital signs stable. MENTAL STATUS: Alert, oriented, and coherent. In great distress from the headache. NECK : Supple, no nuchal rigidity, nontender, no lymphadenopathy. HEART: Regular rhythm and normal rate without murmurs, ectopy, gallops, or rubs. SKIN: Normal. NEUROLOGICAL: Pupils are round, equal and react to light. The optic fundi are normal and the discs are flat. EOMs are full and there is no nystagmus. The patient moves all extremities well and the gait is normal. EMERGENCY DEPARTMENT COURSE: I examined the patient. The patient is on a 2 shot per month treatment protocol. This is her first visit for the month. The patient was given 3mg IM dilaudid, 60mg IM toradol and 50mg IM phenergan with relief of their pain. The differential diagnosis includes acute intracranial bleed, meningitis, encephalitis, mass or mass effect, sinusitis, infection, tumor, headache, temporal arteritis and carbon monoxide exposure, and migraine. The patient was discharged home in stable condition with her father driving. DIAGNOSIS: Migraine headache DISCHARGE INSTRUCTIONS & TREATMENT: Rest at home, resume prescription medications. See your own doctor in follow-up. Problem List Medical Problems: (1) Bronchitis Status: Resolved (2) Contusion of fourth toe of right foot Status: Resolved (3) Fracture of fourth toe, right, closed Status: Resolved (4) Sinusitis Status: Resolved (5) Toothache Status: Resolved (6) Ulcer Status: Resolved Surgical Problems: (1) Tonsillectomy and adenoidectomy Status: Resolved Current/Historical Medications Scheduled Amitriptyline HCl (Amitriptyline HCl), 10 MG PO HS Bupropion (Wellbutrin), 75 MG PO BID Levonorgestrel (Iud) (Mirena), 20 MCG INT UTER UD Multiple Vitamin (Multi Vitamin Daily), 1 TAB PO DAILY Scheduled PRN Acetaminophen (Tylenol), 1,000 MG PO Q4H PRN for Headache or Pain Cyclobenzaprine Hcl (Flexeril), 10 MG PO HS PRN for Muscle Spasm Ibuprofen Tab (Advil), 400-800 MG PO Q6H PRN for Headache or Pain Ondasetron Odt (Zofran Odt), 4 MG SL Q8 PRN for Nausea Pseudoephedrine Hcl (Sudafed), 30-60 MG PO Q4H PRN for Headache Rizatriptan Benzoate (Rizatriptan Benzoate), 10 MG PO UD PRN for Migraine Sumatriptan Succinate (Imitrex Nasal [place]), 1 SPRAY NA UD PRN for Headache Allergies Coded Allergies: Amoxicillin (Verified Allergy, Intermediate, HIVES, 11/04/16) Penicillins (Verified Allergy, Intermediate, HIVES (AMOXIL), 11/04/16) Vital Signs Date Time Temp Pulse Resp B/P Pulse Ox O2 Delivery O2 Flow Rate FiO2 12/16/16 16:06 72 15 120/80 97 12/16/16 15:06 36.9 75 18 124/85 96 Room Air Medications Administered Medications (Trade) Dose Ordered Sig/Kirby Route Start Time Stop Time Status Last Admin Dose Admin Hydromorphone HCl (Dilaudid Inj) 3 mg NOW STAT IM 12/16/16 15:12 12/16/16 15:14 DC 12/16/16 15:38 3 MG Promethazine HCl (Phenergan Inj) 50 mg NOW STAT IM 12/16/16 15:12 12/16/16 15:14 DC 12/16/16 15:36 50 MG Ketorolac Tromethamine (Toradol Inj) 60 mg NOW STAT IM 12/16/16 15:12 12/16/16 15:14 DC 12/16/16 15:37 60 MG Departure Information Impression Primary Impression: Migraine Referrals Case, Sonam Tena (PCP) Patient Instructions [facility]
[2016-12-16 16:06] VITALS: BP 120/80; PULSE 72; O2SAT 97
[2017-03-18] MEDS ORDERED: AMT10 PO (14:30)
[2017-03-18] MEDS ORDERED: IMTIN5 (14:34)
[2017-03-18] MEDS ORDERED: MULT-884 PO (14:45)
[2017-03-18] MEDS ORDERED: IBUP-103 PO (14:45)
[2017-03-18] MEDS ORDERED: PSEU30TA64 PO (14:45)
[2017-03-18] MEDS ORDERED: TYLOTC500 PO (14:45)
[2017-03-18] MEDS ORDERED: CYCL10TA6 PO (15:04)
[2017-03-18] MEDS ORDERED: ASPI-390 PO (15:09)
[2017-03-18] MEDS ORDERED: ONDA4TAB10 SL (15:20)
[2017-03-18] MEDS ORDERED: LEVOIUD INT UTER (16:09)
[2017-03-18] MEDS ORDERED: RIZA1TAB11 PO (16:27)
== END 2016-12-16 16:08 | disposition home or self-care (01) ==
LOC: C.EDB 14:59 → C.EDD 16:08
DX: G43.909 Migraine, unspecified, not intractable, without status migrainosus (principal); F17.200 Nicotine dependence, unspecified, uncomplicated

== ENCOUNTER 2016-12-20 17:49 | Emergency (ER) | payer OTHER ==
[~2016-12-20] VITALS: Ht 160 cm; Wt 58.0 kg
[2016-12-20 17:51] VITALS: TEMP 36.9; Ht 160 cm; Wt 58.0 kg
[2016-12-20] MEDS ORDERED: HYDROmorphone HCL 4 MG/ML SYR IM STA (18:10)
[2016-12-20] MEDS ORDERED: PROMETHAZINE HCL INJ 25 MG/ML 1 ML VIAL IM STA (18:10)
[2016-12-20] MEDS ORDERED: KETOROLAC TROMETHAMINE 60 MG/2 ML VIAL IM STA (18:10)
[2016-12-20] MEDS ORDERED: HYDROmorphone INJ 1 MG/ML SYR ONE (18:24)
[2016-12-20] MEDS ORDERED: HYDROmorphone INJ 2 MG/ML SYR/VIAL ONE (18:24)
--- NOTE | 2016-12-20 18:43 | EMERGENCY ROOM VISIT NOTE ---
ED Visit Note First contact with patient: 17:55 CHIEF COMPLAINT: Migraine headache today, right fourth toe injury just prior to arrival HISTORY OF PRESENT ILLNESS: Patient is a 36-year-old white female who presents to the emergency department for evaluation of a migraine headache that started today. She took her usual medications without relief of her symptoms. She rates her pain a 8/10. She is under the care of neurology and her PCP. She has been keeping a headache log and has been taking Wellbutrin and using Imitrex nasal spray. The patient states the migraine is similar to their typical migraines, with associated nausea and photophobia without vomiting. She states her stomach is upset. No facial swelling or fever. No posterior neck pain or stiffness. Denies weakness or numbness of the extremities. There is no difficulty with coordination speech or vision. No trauma to the head and no neck pain. Patient states that she was a little off balance because of her headache and was walking in bare feet and stubbed her right foot on her bed frame. She notes pain, swelling, bruising and slight deformity of the right fourth toe. She tried to ice it and took ibuprofen immediately, but it upset her stomach. REVIEW OF SYSTEMS: Review of systems as per HPI. All other systems reviewed were negative. 10 systems reviewed. PMH: Electronic medical records are reviewed and summarized as above/below. See Problem List. SOCIAL HISTORY: Lives locally with family. Smoker. PHYSICAL EXAM: Vital Signs: Reviewed Nurse's notes. General Appearance: Patient is a well-appearing 36-year-old white female who is awake and alert and in no acute distress. Eyes: Pupils equal round reactive to light extraocular muscles are intact, no proptosis, mild photophobia ENT: Oropharynx is clear, mucous membranes are moist, tympanic membranes are clear bilaterally, no sinus tenderness. Neck: Supple, no cervical lymphadenopathy, no meningismus Heart: Regular rate and rhythm, S1 and S2 Lungs: Clear to auscultation bilaterally, no wheezes Rales or rhonchi, no increased work of breathing Abdomen: Soft nontender nondistended. Normal active bowel sounds. No rebound. No guarding. Back: No midline tenderness to palpation. : No CVA tenderness to palpation. Skin: Warm, no diaphoresis, no rashes. Extremities: Examination of the right foot shows slight ecchymosis and lateral deviation of the left fourth toe. Toe is tender to palpation. Skin is intact. No cyanosis, clubbing, or edema Neurologic: Patient is awake alert, and oriented x 3. Cranial nerves 2-12 are grossly intact. Motor 5 out of 5 strength bilateral upper extremities and lower extremities. No gross sensory deficits. Reflexes are 2+ throughout. EMERGENCY DEPARTMENT COURSE: The patient was seen and assessed as above. Old records were reviewed. This is her second visit for the month of December. The patient is on a 2 narcotic injection per month treatment plan for their migraines. She is requesting her second injection for the month today. The patient was given 3 mg IM Dilaudid, Toradol 60 mg and and 50 mg IM Phenergan per their usual protocol. She was discharged to home to rest. Family members are driving. With regards to her foot, clinically she has suffered a fracture of the right fourth toe. It was not felt that radiographs were necessary. Toes were roni taped and she was placed in a postoperative shoe. Supportive care measures were discussed. The differential diagnosis includes acute intracranial bleed, meningitis, encephalitis, mass or mass effect, sinusitis, dental abscess, facial cellulitis , infection, tumor, headache, temporal arteritis and carbon monoxide exposure, and migraine. The patient was discharged home in stable condition. Problem List Medical Problems: (1) Bronchitis Status: Resolved (2) Contusion of fourth toe of right foot Status: Resolved (3) Fracture of fourth toe, right, closed Status: Resolved (4) Sinusitis Status: Resolved (5) Toothache Status: Resolved (6) Ulcer Status: Resolved Surgical Problems: (1) Tonsillectomy and adenoidectomy Status: Resolved Current/Historical Medications Scheduled Amitriptyline HCl (Amitriptyline HCl), 10 MG PO HS Bupropion (Wellbutrin), 75 MG PO BID Levonorgestrel (Iud) (Mirena), 20 MCG INT UTER UD Multiple Vitamin (Multi Vitamin Daily), 1 TAB PO DAILY Scheduled PRN Acetaminophen (Tylenol), 1,000 MG PO Q4H PRN for Headache or Pain Cyclobenzaprine Hcl (Flexeril), 10 MG PO HS PRN for Muscle Spasm Ibuprofen Tab (Advil), 400-800 MG PO Q6H PRN for Headache or Pain Ondasetron Odt (Zofran Odt), 4 MG SL Q8 PRN for Nausea Pseudoephedrine Hcl (Sudafed), 30-60 MG PO Q4H PRN for Headache Rizatriptan Benzoate (Rizatriptan Benzoate), 10 MG PO UD PRN for Migraine Sumatriptan Succinate (Imitrex Nasal [place]), 1 SPRAY NA UD PRN for Headache Allergies Coded Allergies: Amoxicillin (Verified Allergy, Intermediate, HIVES, 12/20/16) Penicillins (Verified Allergy, Intermediate, HIVES (AMOXIL), 12/20/16) Vital Signs Date Time Temp Pulse Resp B/P Pulse Ox O2 Delivery O2 Flow Rate FiO2 12/20/16 18:59 79 16 148/69 96 12/20/16 17:51 36.9 81 16 155/85 94 Room Air Medications Administered Medications (Trade) Dose Ordered Sig/Kirby Route Start Time Stop Time Status Last Admin Dose Admin Ketorolac Tromethamine (Toradol Inj) 60 mg NOW STAT IM 12/20/16 18:10 12/20/16 18:13 DC 12/20/16 18:21 60 MG Promethazine HCl (Phenergan Inj) 50 mg NOW STAT IM 12/20/16 18:10 12/20/16 18:13 DC 12/20/16 18:21 50 MG Hydromorphone HCl (Dilaudid Inj) 1 mg STK-MED ONCE .ROUTE 12/20/16 18:24 12/20/16 18:25 DC 12/20/16 18:22 1 MG Hydromorphone HCl (Dilaudid Inj) 2 mg STK-MED ONCE .ROUTE 12/20/16 18:24 12/20/16 18:25 DC 12/20/16 18:22 2 MG Departure Information Impression Primary Impression: Headache Additional Impression: Toe fracture, right Referrals Estelle Purvis (PCP) Patient Instructions My [facility] Additional Instructions DO NOT drive, drink alcohol, operate machinery, or perform dangerous activities today. You were given medications in the ER that can affect your ability to safely function or operate a vehicle. Rest today in a quiet, peaceful, dark environment and get a full 8-10 hrs of sleep tonight. Avoid loud noises, smoke/smoking, alcohol, bright lights, stress, or physical exertion today to minimize the chance the headache may return. Continue current medications. Ibuprofen(Motrin, Advil) may be used for fever or pain. Use 600mg every six hours as needed. Take with food. Avoid using more than 2400mg in a 24 hour period. Do not use 2400mg per day for more than three consecutive days without physician direction. Prolonged inappropriate use can lead to stomach upset or ulcers. (AND/OR) Acetaminophen(Tylenol) may be used for fever or pain. Use 1000mg every six hours as needed. Avoid using more than 3000mg in a 24 hour period. Wear postoperative shoe and roni tape toes together for support until pain subsides. May resume normal activity and wear normal shoes as pain allows. Return to the ER for passing out, worsening headache, vision problems, neck stiffness/pain, fevers, vomiting, worsening of your condition, or as needed. Follow up with your primary physician in 2-3 days for a recheck of your current condition. Problem Qualifiers
[2016-12-20 18:59] VITALS: BP 148/69; PULSE 79; O2SAT 96
[2017-03-18] MEDS ORDERED: AMT10 PO (14:30)
[2017-03-18] MEDS ORDERED: IMTIN5 (14:34)
[2017-03-18] MEDS ORDERED: TYLOTC500 PO (14:45)
[2017-03-18] MEDS ORDERED: IBUP-103 PO (14:45)
[2017-03-18] MEDS ORDERED: PSEU30TA64 PO (14:45)
[2017-03-18] MEDS ORDERED: MULT-884 PO (14:45)
[2017-03-18] MEDS ORDERED: CYCL10TA6 PO (15:04)
[2017-03-18] MEDS ORDERED: ASPI-390 PO (15:09)
[2017-03-18] MEDS ORDERED: ONDA4TAB10 SL (15:20)
[2017-03-18] MEDS ORDERED: LEVOIUD INT UTER (16:09)
[2017-03-18] MEDS ORDERED: RIZA1TAB11 PO (16:27)
== END 2016-12-20 19:01 | disposition home or self-care (01) ==
LOC: C.EDB 17:50 → C.EDD 19:01
DX: R51 Headache (principal); S92.911A Unspecified fracture of right toe(s), initial encounter for closed fracture; W22.8XXA Striking against or struck by other objects, initial encounter; F17.200 Nicotine dependence, unspecified, uncomplicated; Z87.81 Personal history of (healed) traumatic fracture; Z87.828 Personal history of other (healed) physical injury and trauma; Z79.899 Other long term (current) drug therapy; Z88.0 Allergy status to penicillin; Z88.1 Allergy status to other antibiotic agents

== ENCOUNTER 2017-01-08 14:40 | Emergency (ER) | payer OTHER ==
[~2017-01-08] VITALS: Ht 160 cm; Wt 60.4 kg
[2017-01-08 14:45] VITALS: TEMP 36.9; Ht 160 cm; Wt 60.4 kg
[2017-01-08] MEDS ORDERED: KETOROLAC TROMETHAMINE 60 MG/2 ML VIAL IM STA (15:27)
[2017-01-08] MEDS ORDERED: PROMETHAZINE HCL INJ 25 MG/ML 1 ML VIAL IM STA (15:27)
[2017-01-08] MEDS ORDERED: HYDROmorphone HCL 4 MG/ML SYR IM STA (15:27)
--- NOTE | 2017-01-08 15:31 | EMERGENCY ROOM VISIT NOTE ---
ED Visit Note First contact with patient: 15:02 CHIEF COMPLAINT: Migraine headache 2 days HISTORY OF PRESENT ILLNESS: Patient is a 36-year-old white female who presents to the emergency department for evaluation of a migraine headache that started yesterday evening. She took her usual medications including Zofran and Excedrin without relief of her symptoms. She rates her pain a 8/10. She is under the care of neurology and her PCP. The patient states the migraine is similar to their typical migraines, with associated nausea and photophobia without vomiting. She states her stomach is upset. No facial swelling or fever. No posterior neck pain or stiffness. Denies weakness or numbness of the extremities. There is no difficulty with coordination speech or vision. No trauma to the head and no neck pain. REVIEW OF SYSTEMS: Review of systems as per HPI. All other systems reviewed were negative. 10 systems reviewed. PMH: Electronic medical records are reviewed and summarized as above/below. See Problem List. SOCIAL HISTORY: Lives locally with family. Smoker. PHYSICAL EXAM: Vital Signs: Reviewed Nurse's notes. General Appearance: Patient is a well-appearing 36-year-old white female who is awake and alert and in no acute distress. Eyes: Pupils equal round reactive to light extraocular muscles are intact, no proptosis, mild photophobia ENT: Oropharynx is clear, mucous membranes are moist, tympanic membranes are clear bilaterally, no sinus tenderness. Neck: Supple, no cervical lymphadenopathy, no meningismus Heart: Regular rate and rhythm, S1 and S2 Lungs: Clear to auscultation bilaterally, no wheezes Rales or rhonchi, no increased work of breathing Abdomen: Soft nontender nondistended. Normal active bowel sounds. No rebound. No guarding. Back: No midline tenderness to palpation. : No CVA tenderness to palpation. Skin: Warm, no diaphoresis, no rashes. Extremities: No cyanosis, clubbing, or edema Neurologic: Patient is awake alert, and oriented x 3. Cranial nerves 2-12 are grossly intact. Motor 5 out of 5 strength bilateral upper extremities and lower extremities. No gross sensory deficits. Reflexes are 2+ throughout. EMERGENCY DEPARTMENT COURSE: The patient was seen and assessed as above. Old records were reviewed. This is her first visit for the month of January. The patient is on a 2 narcotic injection per month treatment plan for their migraines. She is requesting her first injection for the month today. The patient was given 3 mg IM Dilaudid, Toradol 60 mg and and 50 mg IM Phenergan per their usual protocol. She was discharged to home to rest. Father is driving. She rated her pain an 8/10 at discharge. The differential diagnosis includes acute intracranial bleed, meningitis, encephalitis, mass or mass effect, sinusitis, dental abscess, facial cellulitis , infection, tumor, headache, temporal arteritis and carbon monoxide exposure, and migraine. The patient was discharged home in stable condition. Problem List Medical Problems: (1) Bronchitis Status: Resolved (2) Contusion of fourth toe of right foot Status: Resolved (3) Fracture of fourth toe, right, closed Status: Resolved (4) Sinusitis Status: Resolved (5) Toothache Status: Resolved (6) Ulcer Status: Resolved Surgical Problems: (1) Tonsillectomy and adenoidectomy Status: Resolved Current/Historical Medications Scheduled Amitriptyline HCl (Amitriptyline HCl), 10 MG PO HS Bupropion (Wellbutrin), 75 MG PO BID Levonorgestrel (Iud) (Mirena), 20 MCG INT UTER UD Multiple Vitamin (Multi Vitamin Daily), 1 TAB PO DAILY Scheduled PRN Acetaminophen (Tylenol), 1,000 MG PO Q4H PRN for Headache or Pain Jltdbzy-Spheuixbvxclv-Zhysdoxw (Excedrin Migraine), 1 TAB PO UD PRN for Migraine Cyclobenzaprine Hcl (Flexeril), 10 MG PO HS PRN for Muscle Spasm Ibuprofen Tab (Advil), 400-800 MG PO Q6H PRN for Headache or Pain Ondasetron Odt (Zofran Odt), 4 MG SL Q8 PRN for Nausea Pseudoephedrine Hcl (Sudafed), 30-60 MG PO Q4H PRN for Headache Rizatriptan Benzoate (Rizatriptan Benzoate), 10 MG PO UD PRN for Migraine Sumatriptan Succinate (Imitrex Nasal [place]), 1 SPRAY NA UD PRN for Headache Allergies Coded Allergies: Amoxicillin (Verified Allergy, Intermediate, HIVES, 12/20/16) Penicillins (Verified Allergy, Intermediate, HIVES (AMOXIL), 12/20/16) Vital Signs Date Time Temp Pulse Resp B/P Pulse Ox O2 Delivery O2 Flow Rate FiO2 01/08/17 15:56 70 16 176/80 96 01/08/17 14:45 36.9 70 16 119/82 96 Room Air Medications Administered Medications (Trade) Dose Ordered Sig/Kirby Route Start Time Stop Time Status Last Admin Dose Admin Ketorolac Tromethamine (Toradol Inj) 60 mg NOW STAT IM 01/08/17 15:27 01/08/17 15:29 DC 01/08/17 15:55 60 MG Promethazine HCl (Phenergan Inj) 50 mg NOW STAT IM 01/08/17 15:27 01/08/17 15:29 DC 01/08/17 15:54 50 MG Hydromorphone HCl (Dilaudid Inj) 1 mg STK-MED ONCE .ROUTE 01/08/17 15:39 01/08/17 15:40 DC 01/08/17 15:55 1 MG Hydromorphone HCl (Dilaudid Inj) 2 mg STK-MED ONCE .ROUTE 01/08/17 15:39 01/08/17 15:40 DC 01/08/17 15:56 2 MG Departure Information Impression Primary Impression: Headache Referrals Estelle Purvis (PCP) Patient Instructions My [facility] Additional Instructions DO NOT drive, drink alcohol, operate machinery, or perform dangerous activities today. You were given medications in the ER that can affect your ability to safely function or operate a vehicle. Rest today in a quiet, peaceful, dark environment and get a full 8-10 hrs of sleep tonight. Avoid loud noises, smoke/smoking, alcohol, bright lights, stress, or physical exertion today to minimize the chance the headache may return. Continue current medications. Return to the ER for passing out, worsening headache, vision problems, neck stiffness/pain, fevers, vomiting, worsening of your condition, or as needed. Follow up with your primary physician in 2-3 days for a recheck of your current condition.
[2017-01-08] MEDS ORDERED: HYDROmorphone INJ 2 MG/ML SYR/VIAL ONE (15:39)
[2017-01-08] MEDS ORDERED: HYDROmorphone INJ 1 MG/ML SYR ONE (15:39)
[2017-01-08 15:56] VITALS: BP 176/80; PULSE 70; O2SAT 96
[2017-03-18] MEDS ORDERED: AMT10 PO (14:30)
[2017-03-18] MEDS ORDERED: IMTIN5 (14:34)
[2017-03-18] MEDS ORDERED: TYLOTC500 PO (14:45)
[2017-03-18] MEDS ORDERED: IBUP-103 PO (14:45)
[2017-03-18] MEDS ORDERED: MULT-884 PO (14:45)
[2017-03-18] MEDS ORDERED: PSEU30TA64 PO (14:45)
[2017-03-18] MEDS ORDERED: CYCL10TA6 PO (15:04)
[2017-03-18] MEDS ORDERED: ASPI-390 PO (15:09)
[2017-03-18] MEDS ORDERED: ONDA4TAB10 SL (15:20)
[2017-03-18] MEDS ORDERED: LEVOIUD INT UTER (16:09)
[2017-03-18] MEDS ORDERED: RIZA1TAB11 PO (16:27)
== END 2017-01-08 15:58 | disposition home or self-care (01) ==
LOC: C.EDB 14:41 → C.EDD 15:58
DX: R51 Headache (principal); F17.200 Nicotine dependence, unspecified, uncomplicated; Z79.899 Other long term (current) drug therapy

== ENCOUNTER 2017-01-18 16:22 | Emergency (ER) | payer OTHER ==
[~2017-01-18] VITALS: Ht 160 cm; Wt 58.6 kg
[2017-01-18 16:27] VITALS: TEMP 36.7; Ht 160 cm; Wt 58.6 kg
[2017-01-18] MEDS ORDERED: KETOROLAC TROMETHAMINE 60 MG/2 ML VIAL IM STA (16:32)
[2017-01-18] MEDS ORDERED: HYDROmorphone HCL 4 MG/ML SYR IM STA (16:32)
[2017-01-18] MEDS ORDERED: PROMETHAZINE HCL INJ 50 MG/ML 1 ML VIAL/AMP IM STA (16:32)
[2017-01-18] MEDS ORDERED: HYDROmorphone INJ 1 MG/ML SYR ONE (16:40)
[2017-01-18] MEDS ORDERED: HYDROmorphone INJ 2 MG/ML SYR/VIAL ONE (16:40)
--- NOTE | 2017-01-18 16:44 | EMERGENCY ROOM VISIT NOTE ---
History Report prepared by Abhilash: Seema Hogue Under the Supervision of: Dr. Ivan Suarez M.D. First contact with patient: 16:29 Chief Complaint: HEADACHE Stated Complaint: MIGRAINE, NAUSEA History of Present Illness The patient is a 36 year old female who presents to the Emergency Room with complaints of persistent severe headache starting this morning. The pain is present in the left side of her head and behind her eyes. She has a history of migraines. Her current headache feels like her typical migraine. She reports nausea. She denies any fever. She denies any head injury. Source of History: patient Onset: this morning Position: head Quality: ache Timing: other (persistent) Associated Symptoms: + nausea, No fevers Review of Systems See HPI for pertinent positives & negatives. A total of 10 systems reviewed and were otherwise negative. Past Medical & Surgical Medical Problems: (1) Bronchitis (2) Contusion of fourth toe of right foot (3) Fracture of fourth toe, right, closed (4) Sinusitis (5) Toothache (6) Ulcer Surgical Problems: (1) Tonsillectomy and adenoidectomy Family History FH: cancer Seizures Social History Smoking Status: Current Every Day Smoker Alcohol Use: none Drug Use: none Marital Status: Housing Status: lives with roommate Occupation Status: unemployed Current/Historical Medications Scheduled Amitriptyline HCl (Amitriptyline HCl), 10 MG PO HS Bupropion (Wellbutrin), 75 MG PO BID Levonorgestrel (Iud) (Mirena), 20 MCG INT UTER UD Multiple Vitamin (Multi Vitamin Daily), 1 TAB PO DAILY Scheduled PRN Acetaminophen (Tylenol), 1,000 MG PO Q4H PRN for Headache or Pain Zstpmxi-Bhehxgmpuewyq-Npifvcew (Excedrin Migraine), 1 TAB PO UD PRN for Migraine Cyclobenzaprine Hcl (Flexeril), 10 MG PO HS PRN for Muscle Spasm Ibuprofen Tab (Advil), 400-800 MG PO Q6H PRN for Headache or Pain Ondasetron Odt (Zofran Odt), 4 MG SL Q8 PRN for Nausea Pseudoephedrine Hcl (Sudafed), 30-60 MG PO Q4H PRN for Headache Rizatriptan Benzoate (Rizatriptan Benzoate), 10 MG PO UD PRN for Migraine Sumatriptan Succinate (Imitrex Nasal [place]), 1 SPRAY NA UD PRN for Headache Allergies Coded Allergies: Amoxicillin (Verified Allergy, Intermediate, HIVES, 01/18/17) Penicillins (Verified Allergy, Intermediate, HIVES (AMOXIL), 01/18/17) Physical Exam Vital Signs Date Time Temp Pulse Resp B/P Pulse Ox O2 Delivery O2 Flow Rate FiO2 01/18/17 16:27 36.7 77 18 109/88 96 Room Air Physical Exam GENERAL: Patient is in no acute distress. HEENT: No acute trauma, normocephalic atraumatic, mucous membranes moist, no nasal congestion, no scleral icterus. Pupils equal and reactive to light. NECK: No stridor, no adenopathy, no meningismus, trachea is midline. LUNGS: Clear to auscultation bilaterally, no wheeze, no rhonchi, breath sounds equal. HEART: Without murmurs gallops or rubs, regular rate and rhythm. ABDOMEN: Soft, nontender, bowel sounds positive, no hernias, no peritonitis. EXTREMITIES: No cyanosis or edema, full range of motion of all the joints without pain or difficulty, no signs for acute trauma. NEUROLOGIC: Oriented x 3, no acute motor or sensory deficits, no focal weakness. No cerebellar deficits. SKIN: No rash, no jaundice, no diaphoresis Medical Decision & Procedures ED Course 1631: The patient was evaluated in room D1B. A complete history and physical exam was performed. 1632: Toradol Inj 60 mg IM, Phenergan Inj 50 mg IM, Dilaudid Inj 3 mg IM. 1640: I reevaluated the patient. She is resting comfortably. I discussed results and discharge instructions: she verbalized understanding and agreement. The patient is ready for discharge. Medical Decision Differential diagnosis: migraine, tension headache, intracranial bleeding, meningitis, head trauma, viral illness. The patient presents with a left-sided headache. She has a history of migraines and this headache feels similar. There is been no fever or head trauma. She has no arm or leg numbness. Her neurologic exam is normal and nonfocal. She does not have meningismus, she is not toxic in appearance. The patient received her typical IM Dilaudid, IM Toradol and IM Phenergan. She has done well with these medications before. She is being discharged. Her headache does seem migrainous. Impression Primary Impression: Headache Scribe Attestation The scribe's documentation has been prepared under my direction and personally reviewed by me in its entirety. I confirm that the note above accurately reflects all work, treatment, procedures, and medical decision making performed by me. Departure Information Dispostion Home / Self-Care Referrals No Doctor, Assigned (PCP) Forms HOME CARE DOCUMENTATION FORM, IMPORTANT VISIT INFORMATION Patient Instructions My [facility] Additional Instructions fluids rest sleep return if worsening
[2017-01-18 16:53] VITALS: BP 112/73; PULSE 78; O2SAT 98
[2017-03-18] MEDS ORDERED: AMT10 PO (14:30)
[2017-03-18] MEDS ORDERED: IMTIN5 (14:34)
[2017-03-18] MEDS ORDERED: IBUP-103 PO (14:45)
[2017-03-18] MEDS ORDERED: MULT-884 PO (14:45)
[2017-03-18] MEDS ORDERED: PSEU30TA64 PO (14:45)
[2017-03-18] MEDS ORDERED: TYLOTC500 PO (14:45)
[2017-03-18] MEDS ORDERED: CYCL10TA6 PO (15:04)
[2017-03-18] MEDS ORDERED: ASPI-390 PO (15:09)
[2017-03-18] MEDS ORDERED: ONDA4TAB10 SL (15:20)
[2017-03-18] MEDS ORDERED: LEVOIUD INT UTER (16:09)
[2017-03-18] MEDS ORDERED: RIZA1TAB11 PO (16:27)
== END 2017-01-18 16:54 | disposition home or self-care (01) ==
LOC: C.EDB 16:23 → C.EDD 16:54
DX: R51 Headache (principal); Z87.828 Personal history of other (healed) physical injury and trauma; Z86.73 Personal history of transient ischemic attack (TIA), and cerebral infarction without residual deficits; F17.200 Nicotine dependence, unspecified, uncomplicated; Z86.19 Personal history of other infectious and parasitic diseases; Z79.899 Other long term (current) drug therapy; Z88.1 Allergy status to other antibiotic agents; Z79.82 Long term (current) use of aspirin; Z88.0 Allergy status to penicillin; Z98.890 Other specified postprocedural states; Z80.9 Family history of malignant neoplasm, unspecified; Z82.0 Family history of epilepsy and other diseases of the nervous system

== ENCOUNTER 2017-02-05 12:23 | Emergency (ER) | payer OTHER ==
[~2017-02-05] VITALS: Ht 162.6 cm; Wt 58.0 kg
[2017-02-05 12:33] VITALS: TEMP 36.8; Ht 162.6 cm; Wt 58.0 kg
[2017-02-05] MEDS ORDERED: HYDROmorphone INJ 2 MG/ML SYR/VIAL IM STA (13:15)
[2017-02-05] MEDS ORDERED: PROMETHAZINE HCL INJ 25 MG/ML 1 ML VIAL IM STA (13:15)
[2017-02-05] MEDS ORDERED: KETOROLAC TROMETHAMINE 60 MG/2 ML VIAL IM STA (13:15)
--- NOTE | 2017-02-05 13:17 | EMERGENCY ROOM VISIT NOTE ---
ED Visit Note First contact with patient: 13:09 CHIEF COMPLAINT: Migraine headache, nausea HISTORY OF PRESENT ILLNESS: This 36-year-old female patient presented to the emergency department via private vehicle coming by father with a gradual onset of a severe generalized headache that started yesterday afternoon. The patient states the migraine is similar to their typical migraines. There has been associated photophobia, phonophobia, nausea and vomiting. The patient denies fever or chills recently, and there is no weakness or numbness of the extremities. There is no difficulty with speech or vision. No trauma to the head and no neck pain. The pain is severe, constant, and it is slowly increasing in severity. The patient rates the pain as intense and 10/10. The patient has taken Excedrin and Zofran without relief. This is not the worst headache of the life and is similar to previous migraines. Previous imaging studies of the brain have been normal from an emergency department standpoint. REVIEW OF SYSTEMS: A review of systems was performed with positives and pertinent negatives listed in the history of present illness. All other systems were reviewed and are negative. ALLERGIES: As noted below MEDICATIONS: As noted below PMH: Migraine headaches SOCIAL HISTORY: Patient lives locally with family PHYSICAL EXAM: Vital Signs: Reviewed Nurse's notes, vital signs stable. GENERAL : 36-year-old female, who appears in pain, but non toxic in appearance and in no acute distress. MENTAL STATUS: Alert, oriented, and coherent. HEENT: Normocephalic. PERRLA. EOMI. Nares patent without nuchal rigidity. Tympanic membranes pearly melton without erythema or effusion bilaterally. Mucous membranes moist. NECK: Supple, no nuchal rigidity, nontender, no lymphadenopathy. HEART: Regular rhythm and normal rate without murmurs, ectopy, gallops, or rubs. LUNGS: Clear to auscultation bilaterally without wheezes, rales or rhonchi. No accessory muscle use. No retractions. SKIN: Normal. NEUROLOGICAL: Pupils are round, equal and react to light. The patient moves all extremities well and the gait is normal. EMERGENCY DEPARTMENT COURSE: I examined the patient. The patient is on a 2 narcotic injection per month treatment plan for their migraines. The patient was given 60 mg of Toradol, 50 mg of Phenergan, and 3 mg of Dilaudid intramuscularly per their usual protocol. Patient was observed for greater than 30 minutes, and was provided water to drink as per her request. She did appear to be feeling much better. She was stable for discharge. The differential diagnosis includes acute intracranial bleed, meningitis, encephalitis, mass or mass effect, sinusitis, infection, tumor, headache, temporal arteritis and carbon monoxide exposure, and migraine. The patient was discharged home in stable condition with father driving. Problem List Medical Problems: (1) Bronchitis Status: Resolved (2) Contusion of fourth toe of right foot Status: Resolved (3) Fracture of fourth toe, right, closed Status: Resolved (4) Sinusitis Status: Resolved (5) Toothache Status: Resolved (6) Ulcer Status: Resolved Surgical Problems: (1) Tonsillectomy and adenoidectomy Status: Resolved Current/Historical Medications Scheduled Amitriptyline HCl (Amitriptyline HCl), 10 MG PO HS Bupropion (Wellbutrin), 75 MG PO BID Levonorgestrel (Iud) (Mirena), 20 MCG INT UTER UD Multiple Vitamin (Multi Vitamin Daily), 1 TAB PO DAILY Scheduled PRN Acetaminophen (Tylenol), 1,000 MG PO Q4H PRN for Headache or Pain Efagunr-Gzpodohgisvxi-Kidmszjw (Excedrin Migraine), 1 TAB PO UD PRN for Migraine Cyclobenzaprine Hcl (Flexeril), 10 MG PO HS PRN for Muscle Spasm Ibuprofen Tab (Advil), 400-800 MG PO Q6H PRN for Headache or Pain Ondasetron Odt (Zofran Odt), 4 MG SL Q8 PRN for Nausea Pseudoephedrine Hcl (Sudafed), 30-60 MG PO Q4H PRN for Headache Rizatriptan Benzoate (Rizatriptan Benzoate), 10 MG PO UD PRN for Migraine Sumatriptan Succinate (Imitrex Nasal [place]), 1 SPRAY NA UD PRN for Headache Allergies Coded Allergies: Amoxicillin (Verified Allergy, Intermediate, HIVES, 02/05/17) Penicillins (Verified Allergy, Intermediate, HIVES (AMOXIL), 02/05/17) Vital Signs Date Time Temp Pulse Resp B/P (MAP) Pulse Ox O2 Delivery O2 Flow Rate FiO2 02/05/17 13:58 68 16 124/78 99 02/05/17 12:33 36.8 67 18 110/71 100 Room Air Medications Administered Medications (Trade) Dose Ordered Sig/Kirby Route Start Time Stop Time Status Last Admin Dose Admin Hydromorphone HCl (Dilaudid Inj) 3 mg NOW STAT IM 02/05/17 13:15 02/05/17 13:17 DC 02/05/17 13:32 3 MG Ketorolac Tromethamine (Toradol Inj) 60 mg NOW STAT IM 02/05/17 13:15 02/05/17 13:17 DC 02/05/17 13:33 60 MG Promethazine HCl (Phenergan Inj) 50 mg NOW STAT IM 02/05/17 13:15 02/05/17 13:17 DC 02/05/17 13:33 50 MG Departure Information Impression Primary Impression: Headache Dispostion Home / Self-Care Condition GOOD Referrals Estelle Purvis (PCP) Patient Instructions My [facility] Additional Instructions You have been treated in the Emergency Department for a Headache. You have received pain medicine in the emergency department which impairs your ability to operate a vehicle. It is illegal for you to drive after receiving these medicines. For pain control, you can use the following rorz-bux-hjsotvs medicines (if >12 yo): - Regular strength (325mg/tab) Tylenol (acetaminophen) 2 tabs every 4-6 hours as needed. Do not exceed 12 tablets in a 24 hour period. Avoid taking more than 3 grams (3000 mg) of Tylenol per day. This includes any other sources of acetaminophen you may take on a regular basis. - Regular strength (200 mg/tab) Advil (ibuprofen) 1-2 tabs every 4-6 hours as needed. Do not exceed a dose of 3200 mg per day. You should relax in a quiet, dark place for the rest of the day. Avoid any possible triggers including: cigarette smoke, caffeine, nicotine, chocolate, wine, beer, loud noises or music, or bright lights. You should schedule a follow-up appointment in 2-3 days with your Primary Care Provider or established Neurologist for further evaluation and treatment of your Headache. Return to the Emergency Department if your current symptoms worsen despite treatment course outlined above, or if you develop any of the following symptoms : intractable pain despite aforementioned treatment course, visual disturbances , loss of vision, unilateral weakness or facial drooping, slurring of speech, loss of coordination, or loss of consciousness. Please return to emergency department with any new/concerning symptoms.
[2017-02-05 13:58] VITALS: BP 124/78; PULSE 68; O2SAT 99
[2017-03-18] MEDS ORDERED: AMT10 PO (14:30)
[2017-03-18] MEDS ORDERED: IMTIN5 (14:34)
[2017-03-18] MEDS ORDERED: TYLOTC500 PO (14:45)
[2017-03-18] MEDS ORDERED: IBUP-103 PO (14:45)
[2017-03-18] MEDS ORDERED: PSEU30TA64 PO (14:45)
[2017-03-18] MEDS ORDERED: MULT-884 PO (14:45)
[2017-03-18] MEDS ORDERED: CYCL10TA6 PO (15:04)
[2017-03-18] MEDS ORDERED: ASPI-390 PO (15:09)
[2017-03-18] MEDS ORDERED: ONDA4TAB10 SL (15:20)
[2017-03-18] MEDS ORDERED: LEVOIUD INT UTER (16:09)
[2017-03-18] MEDS ORDERED: RIZA1TAB11 PO (16:27)
== END 2017-02-05 13:59 | disposition home or self-care (01) ==
LOC: C.EDB 12:24 → C.EDD 13:59
DX: R51 Headache (principal); Z87.828 Personal history of other (healed) physical injury and trauma; Z87.81 Personal history of (healed) traumatic fracture; Z98.890 Other specified postprocedural states; Z79.899 Other long term (current) drug therapy; Z88.0 Allergy status to penicillin; Z88.1 Allergy status to other antibiotic agents

== ENCOUNTER 2017-02-12 16:42 | Emergency (ER) | payer OTHER ==
[~2017-02-12] VITALS: Ht 160 cm; Wt 56.6 kg
[2017-02-12 16:45] VITALS: TEMP 37.1; Ht 160 cm; Wt 56.6 kg
[2017-02-12] MEDS ORDERED: KETOROLAC TROMETHAMINE 60 MG/2 ML VIAL IM STA (16:56)
[2017-02-12] MEDS ORDERED: PROMETHAZINE HCL INJ 25 MG/ML 1 ML VIAL IM STA (16:56)
[2017-02-12] MEDS ORDERED: HYDROmorphone INJ 2 MG/ML SYR/VIAL IM ONE (17:00)
[2017-02-12] MEDS ORDERED: ONDA4TAB65 PO (17:08)
[2017-02-12 17:17] VITALS: BP 121/80; PULSE 79; O2SAT 96
--- NOTE | 2017-02-13 00:23 | EMERGENCY ROOM VISIT NOTE ---
ED Visit Note First contact with patient: 16:54 CHIEF COMPLAINT: Migraine headache HISTORY OF PRESENT ILLNESS: This 36-year-old white female complains of gradual onset of a severe generalized headache that started []. There has been associated nausea and vomiting. The patient denies fever or chills recently, and denies any other cold symptoms. There is no weakness or numbness of the extremities. There is no difficulty with speech, hearing, or vision. No trauma to the head and no neck pain. The pain is severe, constant, and has been slowly increasing in severity. They are photophobic and phonophobic. This is not the worst headache of [] life and is similar to previous migraines. Pain is []/10. Patient is well known to the ED for frequent migraine headaches. REVIEW OF SYSTEMS: Ears: No pain or change in hearing. Neck: No pain, stiffness, or swelling. Neurological: No changes in mental status, vertigo, focal weakness, numbness. Cardiac: No chest pain, diaphoresis, dyspnea on exertion, orthopnea, pedal edema, or palpitations. Respiratory: No cough, change in sputum, wheezes, hemoptysis, shortness of breath, or stridor. Gastrointestinal: No abdominal pain, blood in stools, diarrhea, or loss of appetite. Skin: No rash, new lesions, or masses. General: No fever or chills , fatigue, loss of appetite, or significant recent weight gain or loss. PMH: Supplemental sheet was reviewed and signed. Previous surgeries: Tonsillectomy with adenoidectomy Medical history: Significant for history of bronchitis, GERD, stomach ulcers, and migraines Family history: Significant for cancer and seizures. Parents are living. SOCIAL HISTORY: Patient is employed and lives with her boyfriend. Tobacco use of a half pack a day. No EtOH use. Allergies: Amoxicillin and penicillin Current Medications: Reviewed and filed in patient's chart PHYSICAL EXAM: Vital Signs: Afebrile. Reviewed and filed. MENTAL STATUS: Alert, oriented, and coherent. In obvious discomfort from the headache. No acute distress. She is sitting on a bed. Room is mildly dark. Skin:Warm and dry with good turgor. No rashes or lesions. No ecchymosis or erythema. The patient is not diaphoretic. No abrasions. Acne scarring is present on her cheeks. HEENT:Normocephalic atraumatic. Eyes PERRLA, EOMI. No conjunctiva or scleral injection. They are light sensitive. Ears TMs intact bilaterally with good light reflexes. No erythema or bulging. No hemotympanum. Canals are patent. Nares patent bilaterally without turbinate enlargement. No significant drainage. Oropharynx without erythema or exudate. Uvula midline, oral mucosa moist. No lesions present. Poor dentition. Lymphatics are palpated without anterior or posterior chain enlargement or tenderness. NECK: Supple, nontender, no nuchal rigidity. HEART: Regular rhythm and normal rate without murmurs, ectopy, gallops, or rubs. Peripheral pulses are 2+. LUNGS: Lungs are clear to auscultation. No crackles rhonchi or wheezing. Good air movement. The patient is able to take a deep breath. Abdomen: Bowel sounds present x4. Soft, nontender to palpation. No organomegaly. No masses noted. NEUROLOGIC: The patient moves all extremities well and the gait is normal. Cranial nerves 2 through 12 are intact. Gross sensation is intact across the upper and lower extremities via soft touch. EMERGENCY DEPARTMENT COURSE: The patient was educated regarding today's findings. Conservative care measures were discussed. The patient was given Dilaudid 3 mg IM, Toradol 60 mg IM, and Phenergan 50 mg IM for the headache with significant relief of the pain and nausea. I do not suspect intracranial bleed, encephalitis, or meningitis. DIAGNOSIS: Migraine headache DISCHARGE INSTRUCTIONS & TREATMENT: Patient was given Phenergan, Toradol, Dilaudid for nausea and pain control. Rest at home in a quiet, dark room. Driving precautions were reviewed. Take her usual medications for any breakthrough or persisting pain. See your own doctor in follow-up. Maintain hydration. Return to the ER for any acute changes in mental status. Patient did request a prescription for Zofran 4 mg tablets. This was provided. Problem List Medical Problems: (1) Bronchitis Status: Resolved (2) Contusion of fourth toe of right foot Status: Resolved (3) Fracture of fourth toe, right, closed Status: Resolved (4) Sinusitis Status: Resolved (5) Toothache Status: Resolved (6) Ulcer Status: Resolved Surgical Problems: (1) Tonsillectomy and adenoidectomy Status: Resolved Current/Historical Medications Scheduled Amitriptyline HCl (Amitriptyline HCl), 10 MG PO HS Bupropion (Wellbutrin), 75 MG PO BID Levonorgestrel (Iud) (Mirena), 20 MCG INT UTER UD Multiple Vitamin (Multi Vitamin Daily), 1 TAB PO DAILY Scheduled PRN Acetaminophen (Tylenol), 1,000 MG PO Q4H PRN for Headache or Pain Jgichcs-Dsmgoigzzgxhf-Ffckzgtq (Excedrin Migraine), 1 TAB PO UD PRN for Migraine Cyclobenzaprine Hcl (Flexeril), 10 MG PO HS PRN for Muscle Spasm Ibuprofen Tab (Advil), 400-800 MG PO Q6H PRN for Headache or Pain Ondansetron Hcl (Zofran), 1 TAB PO Q6H PRN for Nausea Ondasetron Odt (Zofran Odt), 4 MG SL Q8 PRN for Nausea Pseudoephedrine Hcl (Sudafed), 30-60 MG PO Q4H PRN for Headache Rizatriptan Benzoate (Rizatriptan Benzoate), 10 MG PO UD PRN for Migraine Sumatriptan Succinate (Imitrex Nasal [place]), 1 SPRAY NA UD PRN for Headache Allergies Coded Allergies: Amoxicillin (Verified Allergy, Intermediate, HIVES, 02/05/17) Penicillins (Verified Allergy, Intermediate, HIVES (AMOXIL), 02/05/17) Vital Signs Date Time Temp Pulse Resp B/P (MAP) Pulse Ox O2 Delivery O2 Flow Rate FiO2 02/12/17 17:17 79 18 121/80 96 Room Air 02/12/17 16:45 37.1 90 20 135/86 97 Room Air Medications Administered Medications (Trade) Dose Ordered Sig/Kirby Route Start Time Stop Time Status Last Admin Dose Admin Promethazine HCl (Phenergan Inj) 50 mg NOW STAT IM 02/12/17 16:56 02/12/17 17:00 DC 02/12/17 17:13 50 MG Ketorolac Tromethamine (Toradol Inj) 60 mg NOW STAT IM 02/12/17 16:56 02/12/17 17:00 DC 02/12/17 17:14 60 MG Hydromorphone HCl (Dilaudid Inj) 3 mg ONE ONCE IM 02/12/17 17:00 02/12/17 17:01 DC 02/12/17 17:14 3 MG Departure Information Impression Primary Impression: Migraine Dispostion Home / Self-Care Prescriptions Ondansetron Hcl (ZOFRAN) 4 Mg Tab 1 TAB PO Q6H Y for Nausea, #10 TAB 1 Refill Prov: Garcia Knight,P.A. 02/12/17 Referrals Estelle Purvis (PCP) Forms HOME CARE DOCUMENTATION FORM, IMPORTANT VISIT INFORMATION Patient Instructions My [facility] Additional Instructions Rest in a quiet dark room Maintain hydration Sunglasses may improve your comfort when outside Return to the ED for any other concerns Follow-up with her PCP as needed Zofran 1 tablet every 6 hours as needed for nausea
[2017-03-18] MEDS ORDERED: AMT10 PO (14:30)
[2017-03-18] MEDS ORDERED: IMTIN5 (14:34)
[2017-03-18] MEDS ORDERED: IBUP-103 PO (14:45)
[2017-03-18] MEDS ORDERED: PSEU30TA64 PO (14:45)
[2017-03-18] MEDS ORDERED: TYLOTC500 PO (14:45)
[2017-03-18] MEDS ORDERED: MULT-884 PO (14:45)
[2017-03-18] MEDS ORDERED: CYCL10TA6 PO (15:04)
[2017-03-18] MEDS ORDERED: ASPI-390 PO (15:09)
[2017-03-18] MEDS ORDERED: ONDA4TAB10 SL (15:20)
[2017-03-18] MEDS ORDERED: LEVOIUD INT UTER (16:09)
[2017-03-18] MEDS ORDERED: RIZA1TAB11 PO (16:27)
== END 2017-02-12 17:21 | disposition home or self-care (01) ==
LOC: C.EDB 16:42 → C.EDD 17:21
DX: G43.909 Migraine, unspecified, not intractable, without status migrainosus (principal); K21.9 Gastro-esophageal reflux disease without esophagitis; F17.200 Nicotine dependence, unspecified, uncomplicated; Z87.19 Personal history of other diseases of the digestive system; Z87.81 Personal history of (healed) traumatic fracture; Z87.828 Personal history of other (healed) physical injury and trauma; Z98.890 Other specified postprocedural states; Z88.0 Allergy status to penicillin; Z88.1 Allergy status to other antibiotic agents; Z80.9 Family history of malignant neoplasm, unspecified; Z82.0 Family history of epilepsy and other diseases of the nervous system

== ENCOUNTER 2017-03-07 18:07 | Emergency (ER) | payer OTHER ==
[~2017-03-07] VITALS: Ht 162.6 cm; Wt 54.5 kg
[~2017-03-07 18:07] MED LIST changes: -HYDR-5688 PO; +ONDA4TAB65 PO
[2017-03-07 18:08] VITALS: BP 137/95; TEMP 36.8; Ht 162.6 cm; Wt 54.5 kg
[2017-03-07] MEDS ORDERED: PROMETHAZINE HCL INJ 25 MG/ML 1 ML VIAL IM STA (18:44)
[2017-03-07] MEDS ORDERED: HYDROmorphone INJ 1 MG/ML SYR IM ONE (18:45)
[2017-03-07] MEDS ORDERED: KETOROLAC TROMETHAMINE 60 MG/2 ML VIAL IM ONE (18:45)
--- NOTE | 2017-03-07 19:35 | EMERGENCY ROOM VISIT NOTE ---
ED Visit Note First contact with patient: 18:34 CHIEF COMPLAINT: Migraine headache HISTORY OF PRESENT ILLNESS: This 36-year-old female patient presented to the emergency department complaining of her typical migraine headache that started when she woke up this morning. She describes as a throbbing sensation throughout her head. It is not the worst headache she has ever had. She occasionally sees dark sparkles in her right visual field which is typical for her migraine headaches. She denies any recent illnesses. No fever or chills. No focal weakness. The patient took ibuprofen and Excedrin migraine at home with minimal relief. REVIEW OF SYSTEMS: A review of systems was performed with positives and pertinent negatives listed in the history of present illness. All other systems were reviewed and are negative. ALLERGIES: Amoxicillin, penicillin MEDICATIONS: Reviewed with the patient. Please see medical reconciliation. Of note, Flonase is a new medication that she started for seasonal allergies a few weeks ago PMH: Chronic migraines, gastric ulcers, seasonal allergies SOCIAL HISTORY: Smokes 10 cigarettes a day, denies EtOH use PHYSICAL EXAM: Vital Signs: Reviewed Nurse's notes, vital signs stable. GENERAL : 36-year-old female, who appears in pain, but non toxic in appearance and in no acute distress. MENTAL STATUS: Alert, oriented, and coherent. HEENT: Normocephalic. PERRLA. EOMI. Nares patent without nuchal rigidity. Tympanic membranes pearly melton without erythema or effusion bilaterally. Mucous membranes moist. NECK: Supple, no nuchal rigidity, nontender, no lymphadenopathy. HEART: Regular rhythm and normal rate without murmurs, ectopy, gallops, or rubs. LUNGS: Clear to auscultation bilaterally without wheezes, rales or rhonchi. No accessory muscle use. No retractions. SKIN: Normal. NEUROLOGICAL: Pupils are round, equal and react to light. The patient moves all extremities well and the gait is normal. EMERGENCY DEPARTMENT COURSE: I examined the patient. The patient is on a 2 narcotic injection per month treatment plan for their migraines. The patient was given Dilaudid 3 mg, Toradol 60 mg and Phenergan 50 mg per their usual protocol. Upon reassessment, the patient's pain was improved. The differential diagnosis includes acute intracranial bleed, meningitis, encephalitis, mass or mass effect, sinusitis, infection, tumor, headache, temporal arteritis and carbon monoxide exposure, and migraine. The patient was discharged home in stable condition with with a pharmacy delivery driver DIAGNOSIS: Migraine headache DISCHARGE INSTRUCTIONS & TREATMENT: DO NOT drive, drink alcohol, operate machinery, or perform dangerous activities today. You were given medications in the ER that can affect your ability to safely function or operate a vehicle. Rest today in a quiet, peaceful, dark environment and get a full 8-10 hrs of sleep tonight. Avoid loud noises, smoke/smoking, alcohol, bright lights, stress, or physical exertion today to minimize the chance the headache may return. Continue current medications as prescribed. Ibuprofen(Motrin, Advil) may be used for fever or pain. Use 600mg every six hours as needed. Take with food. Avoid using more than 2400mg in a 24 hour period. Do not use 2400mg per day for more than three consecutive days without physician direction. Prolonged inappropriate use can lead to stomach upset or ulcers. (AND/OR) Acetaminophen(Tylenol) may be used for fever or pain. Use 1000mg every six hours as needed. Avoid using more than 4000mg in a 24 hour period. Return to the ER for passing out, worsening headache, vision problems, neck stiffness/pain, fevers, vomiting, worsening of your condition, or as needed. Follow up with your primary physician in 2-3 days for a recheck of your current condition.
[2017-03-07 19:45] VITALS: PULSE 72; O2SAT 98
[2017-03-18] MEDS ORDERED: AMT10 PO (14:30)
[2017-03-18] MEDS ORDERED: IMTIN5 (14:34)
[2017-03-18] MEDS ORDERED: TYLOTC500 PO (14:45)
[2017-03-18] MEDS ORDERED: IBUP-103 PO (14:45)
[2017-03-18] MEDS ORDERED: MULT-884 PO (14:45)
[2017-03-18] MEDS ORDERED: PSEU30TA64 PO (14:45)
[2017-03-18] MEDS ORDERED: CYCL10TA6 PO (15:04)
[2017-03-18] MEDS ORDERED: ASPI-390 PO (15:09)
[2017-03-18] MEDS ORDERED: ONDA4TAB10 SL (15:20)
[2017-03-18] MEDS ORDERED: LEVOIUD INT UTER (16:09)
[2017-03-18] MEDS ORDERED: RIZA1TAB11 PO (16:27)
== END 2017-03-07 19:46 | disposition home or self-care (01) ==
LOC: C.EDB 18:08 → C.EDD 19:46
DX: G43.909 Migraine, unspecified, not intractable, without status migrainosus (principal); K25.9 Gastric ulcer, unspecified as acute or chronic, without hemorrhage or perforation; J30.2 Other seasonal allergic rhinitis; F17.210 Nicotine dependence, cigarettes, uncomplicated

== ENCOUNTER 2017-03-18 16:27 | Emergency (ER) | payer OTHER ==
[~2017-03-18] VITALS: Ht 160 cm; Wt 55.0 kg
[~2017-03-18 16:27] MED LIST changes: +AMT10 PO; +ASPI-390 PO; +CYCL10TA6 PO; +IBUP-103 PO; +IMTIN5; +LEVOIUD INT UTER; +MULT-884 PO; +ONDA4TAB10 SL; -ONDA4TAB65 PO; +PSEU30TA64 PO; +RIZA1TAB11 PO; +TYLOTC500 PO
[2017-03-18 16:40] VITALS: TEMP 36.7; Ht 160 cm; Wt 55.0 kg
[2017-03-18] MEDS ORDERED: KETOROLAC TROMETHAMINE 60 MG/2 ML VIAL IM STA (16:54)
[2017-03-18] MEDS ORDERED: PROMETHAZINE HCL INJ 25 MG/ML 1 ML VIAL IM STA (16:54)
[2017-03-18] MEDS ORDERED: HYDROmorphone INJ 1 MG/ML SYR IM STA (16:54)
[2017-03-18 17:19] VITALS: BP 116/74; PULSE 76; O2SAT 99
[2017-03-18] MEDS ORDERED: BUPR75TA20 PO (17:38)
[2017-03-18] MEDS ORDERED: FLUT0.15 NAE (18:38)
--- NOTE | 2017-03-18 23:04 | EMERGENCY ROOM VISIT NOTE ---
ED Visit Note First contact with patient: 16:44 CHIEF COMPLAINT: Migraine headache HISTORY OF PRESENT ILLNESS: This 36-year-old female patient presented to the emergency department with a gradual onset of a severe generalized headache that started earlier today. The patient states the migraine is similar to their typical migraines. There has been associated photophobia, phonophobia, nausea and vomiting. The patient denies fever or chills recently, and there is no weakness or numbness of the extremities. There is no difficulty with speech or vision. No trauma to the head and no neck pain. The pain is severe, constant, and it is slowly increasing in severity. The patient rates the pain as dull and 6/10. The patient has taken zyja-awc-dgiaogk analgesics without relief. This is not the worst headache of the life and is similar to previous migraines. Previous imaging studies of the brain have been normal. REVIEW OF SYSTEMS: A review of systems was performed with positives and pertinent negatives listed in the history of present illness. All other systems were reviewed and are negative. ALLERGIES: Penicillin MEDICATIONS: See EMR PMH: Chronic migraine SOCIAL HISTORY: Lives locally PHYSICAL EXAM: Vital Signs: Reviewed Nurse's notes, vital signs stable. GENERAL: White female, who appears in pain, but non toxic in appearance and in no acute distress. MENTAL STATUS: Alert, oriented, and coherent. HEENT: Normocephalic. PERRLA. EOMI. Nares patent without nuchal rigidity. Tympanic membranes pearly melton without erythema or effusion bilaterally. Mucous membranes moist. NECK: Supple, no nuchal rigidity, nontender, no lymphadenopathy. HEART: Regular rhythm and normal rate without murmurs, ectopy, gallops, or rubs. LUNGS: Clear to auscultation bilaterally without wheezes, rales or rhonchi. No dullness to percussion. No accessory muscle use. No retractions. SKIN: Normal. NEUROLOGICAL: Pupils are round, equal and react to light. The optic fundi are normal and the discs are flat. The patient moves all extremities well and the gait is normal. EMERGENCY DEPARTMENT COURSE: I examined the patient. The patient is on a 2 narcotic injection per month treatment plan for their migraines. The patient was given 3 mg IM Dilaudid, 60 mg IM Toradol, and 50 kg IM Phenergan per their usual protocol. The differential diagnosis includes acute intracranial bleed, meningitis, encephalitis, mass or mass effect, sinusitis, infection, tumor, headache, temporal arteritis and carbon monoxide exposure, and migraine. The patient was discharged home in stable condition with a male wafer abrading machine tender driving. Problem List Medical Problems: (1) Bronchitis Status: Resolved (2) Contusion of fourth toe of right foot Status: Resolved (3) Fracture of fourth toe, right, closed Status: Resolved (4) Sinusitis Status: Resolved (5) Toothache Status: Resolved (6) Ulcer Status: Resolved Surgical Problems: (1) Tonsillectomy and adenoidectomy Status: Resolved Current/Historical Medications Scheduled Amitriptyline HCl (Amitriptyline HCl), 10 MG PO HS Bupropion (Wellbutrin), 75 MG PO BID Fluticasone Propionate (Nasal) (Flonase Allergy Relief), 1 SPRAY LAUREN DAILY Levonorgestrel (Iud) (Mirena), 20 MCG INT UTER UD Multiple Vitamin (Multi Vitamin Daily), 1 TAB PO DAILY Scheduled PRN Acetaminophen (Tylenol), 1,000 MG PO Q4H PRN for Headache or Pain Qqyolbi-Pfhhnoamxtxhi-Wffcgweb (Excedrin Migraine), 1 TAB PO UD PRN for Migraine Cyclobenzaprine Hcl (Flexeril), 10 MG PO HS PRN for Muscle Spasm Ibuprofen Tab (Advil), 400-800 MG PO Q6H PRN for Headache or Pain Ondasetron Odt (Zofran Odt), 4 MG SL Q8 PRN for Nausea Pseudoephedrine Hcl (Sudafed), 30-60 MG PO Q4H PRN for Headache Rizatriptan Benzoate (Rizatriptan Benzoate), 10 MG PO UD PRN for Migraine Sumatriptan Succinate (Imitrex Nasal [place]), 1 SPRAY NA UD PRN for Headache Allergies Coded Allergies: Amoxicillin (Verified Allergy, Intermediate, HIVES, 02/05/17) Penicillins (Verified Allergy, Intermediate, HIVES (AMOXIL), 02/05/17) Vital Signs Date Time Temp Pulse Resp B/P (MAP) Pulse Ox O2 Delivery O2 Flow Rate FiO2 03/18/17 17:19 76 16 116/74 99 03/18/17 16:40 36.7 88 18 121/80 99 Medications Administered Medications (Trade) Dose Ordered Sig/Kirby Route Start Time Stop Time Status Last Admin Dose Admin Promethazine HCl (Phenergan Inj) 50 mg NOW STAT IM 03/18/17 16:54 03/18/17 16:57 DC 03/18/17 17:05 50 MG Ketorolac Tromethamine (Toradol Inj) 60 mg NOW STAT IM 03/18/17 16:54 03/18/17 16:57 DC 03/18/17 17:05 60 MG Hydromorphone HCl (Dilaudid Inj) 3 mg NOW STAT IM 03/18/17 16:54 03/18/17 16:57 DC 03/18/17 17:04 3 MG Departure Information Impression Primary Impression: Migraine Dispostion Home / Self-Care Condition FAIR Referrals No Doctor, Assigned (PCP) Forms HOME CARE DOCUMENTATION FORM, IMPORTANT VISIT INFORMATION Patient Instructions My [facility] Additional Instructions You were seen and evaluated today on an emergency basis only. This is not a substitute for, or an effort to provide, complete comprehensive medical care. It is not possible to recognize and treat all injuries or illnesses in a single emergency department visit. For this reason it is recommended that you followup with your primary care physician or neurologist this week for ongoing care and evaluation. DO NOT drive, drink alcohol, operate machinery, or perform dangerous activities today. You were given medications in the ER that can affect your ability to safely function or operate a vehicle. Rest today in a quiet, peaceful, dark environment and get a full 8-10 hrs of sleep tonight. Avoid loud noises, smoke/smoking, alcohol, bright lights, stress, or physical exertion today to minimize the chance the headache may return. Continue current medications. Ibuprofen(Motrin, Advil) may be used for fever or pain. Use 600mg every six hours as needed. Take with food. Avoid using more than 2400mg in a 24 hour period. Do not use 2400mg per day for more than three consecutive days without physician direction. Prolonged inappropriate use can lead to stomach upset or ulcers. (AND/OR) Acetaminophen(Tylenol) may be used for fever or pain. Use 1000mg every six hours as needed. Avoid using more than 4000mg in a 24 hour period. Return to the ER for passing out, worsening headache, vision problems, neck stiffness/pain, fevers, vomiting, worsening of your condition, or as needed.
== END 2017-03-18 17:20 | disposition home or self-care (01) ==
LOC: C.EDB 16:28 → C.EDD 17:20
DX: G43.909 Migraine, unspecified, not intractable, without status migrainosus (principal); Z79.899 Other long term (current) drug therapy

== ENCOUNTER 2017-04-12 00:26 | Emergency (ER) | payer OTHER ==
[~2017-04-12] VITALS: Ht 160 cm; Wt 52.4 kg
[~2017-04-12 00:26] MED LIST changes: +BUPR75TA20 PO; +FLUT0.15 NAE
[2017-04-12 00:28] VITALS: TEMP 36.7; Ht 160 cm; Wt 52.4 kg
[2017-04-12] MEDS ORDERED: DiphenhydrAMINE HCL 50 MG/ML VIAL IV STA (00:47)
[2017-04-12] MEDS ORDERED: METOCLOPRAMIDE HCL INJ 5 MG/ML 2 ML VIAL IV STA (00:47)
[2017-04-12] MEDS ORDERED: KETOROLAC TROMETHAMINE 30 MG/ML VIAL IV STA (00:47)
[2017-04-12] MEDS ORDERED: SODIUM CHLORIDE 0.9% 1000ML 1,000 ML IV STA (00:47)
--- NOTE | 2017-04-12 00:52 | EMERGENCY ROOM VISIT NOTE ---
History Report prepared by Veronicaibcassie: Lydia Tamez Under the Supervision of: Dr. Naeem Mahajan M.D. First contact with patient: 00:35 Chief Complaint: HEADACHE Stated Complaint: MIGRAINE,NAUSEA History of Present Illness The patient is a 36 year old female who presents to the Emergency Room with complaints of a persistent headache for the past 3 days. She rates her discomfort as a 9/10. She has been nauseous but has not vomited. She tried taking Imitrex and Zofran with no relief. The patient has a history of migraine headaches and states today's symptoms feel similar to her usual migraine. She denies any recent neck pain or stiffness. She denies any vision changes but notes light does worsen her pain. The patient also denies any fevers, chills, cough or cold symptoms, back pain, abdominal pain or diarrhea, or recent ETOH or illegal drug use. Source of History: patient Onset: 3 days [employer] Position: head Symptom Intensity: 9/10 Timing: other (persistent) Modifying Factors (Worsening): other (exposure to light) Associated Symptoms: + nausea, No fevers, No chills, No cough (cough or cold symptoms), No neck pain, No vomiting, No abdominal pain, No back pain, No diarrhea Review of Systems See HPI for pertinent positives and negatives. A total of ten systems were reviewed and were otherwise negative. Past Medical & Surgical Medical Problems: (1) Bronchitis (2) Contusion of fourth toe of right foot (3) Fracture of fourth toe, right, closed (4) Sinusitis (5) Toothache (6) Ulcer Surgical Problems: (1) Tonsillectomy and adenoidectomy Family History FH: cancer Seizures Social History Smoking Status: Current Every Day Smoker Alcohol Use: none Drug Use: none Marital Status: Housing Status: lives with roommate Occupation Status: unemployed Current/Historical Medications Scheduled Amitriptyline HCl (Amitriptyline HCl), 10 MG PO HS Bupropion (Wellbutrin), 75 MG PO BID Fluticasone Propionate (Nasal) (Flonase Allergy Relief), 1 SPRAY LAUREN DAILY Levonorgestrel (Iud) (Mirena), 20 MCG INT UTER UD Multiple Vitamin (Multi Vitamin Daily), 1 TAB PO DAILY Scheduled PRN Acetaminophen (Tylenol), 1,000 MG PO Q4H PRN for Headache or Pain Szhcacb-Txkygoilxdkhf-Lcfzxhtt (Excedrin Migraine), 1 TAB PO UD PRN for Migraine Cyclobenzaprine Hcl (Flexeril), 10 MG PO HS PRN for Muscle Spasm Ibuprofen Tab (Advil), 400-800 MG PO Q6H PRN for Headache or Pain Ondasetron Odt (Zofran Odt), 4 MG SL Q8 PRN for Nausea Pseudoephedrine Hcl (Sudafed), 30-60 MG PO Q4H PRN for Headache Rizatriptan Benzoate (Rizatriptan Benzoate), 10 MG PO UD PRN for Migraine Sumatriptan Succinate (Imitrex Nasal [place]), 1 SPRAY NA UD PRN for Headache Allergies Coded Allergies: Amoxicillin (Verified Allergy, Intermediate, HIVES, 04/12/17) Penicillins (Verified Allergy, Intermediate, HIVES (AMOXIL), 04/12/17) Physical Exam Vital Signs Date Time Temp Pulse Resp B/P (MAP) Pulse Ox O2 Delivery O2 Flow Rate FiO2 04/12/17 02:30 88 18 131/88 97 04/12/17 00:28 36.7 94 18 152/92 98 Room Air Physical Exam GENERAL: Awake, alert, well-appearing, in no distress HENT: Normocephalic, atraumatic. Oropharynx unremarkable. Dry mucous membranes. Photophobia. EYES: Normal conjunctiva. Sclera non-icteric. NECK: Supple. No nuchal rigidity. FROM. No JVD. RESPIRATORY: Clear to auscultation. CARDIAC: Regular rate, normal rhythm. Extremities warm and well perfused. Pulses equal. ABDOMEN: Soft, non-distended. No tenderness to palpation. No rebound or guarding. No masses. RECTAL: Deferred. MUSCULOSKELETAL: Chest examination reveals no tenderness. The back is symmetrical on inspection without obvious abnormality. There is no CVA tenderness to palpation. No joint edema. LOWER EXTREMITIES: Calves are equal size bilaterally and non-tender. No edema. No discoloration. NEURO: Normal sensorium. No sensory or motor deficits noted. SKIN: No rash or jaundice noted. Medical Decision & Procedures Medications Administered Medications (Trade) Dose Ordered Sig/Kirby Route Start Time Stop Time Status Last Admin Dose Admin Sodium Chloride 1,000 ml @ 999 mls/hr Q1H1M STAT IV 04/12/17 00:47 04/12/17 01:47 DC 04/12/17 01:01 999 MLS/HR Metoclopramide HCl (Reglan Inj) 10 mg NOW STAT IV 04/12/17 00:47 04/12/17 00:50 DC 04/12/17 01:00 10 MG Diphenhydramine HCl (Benadryl Inj) 25 mg NOW STAT IV 04/12/17 00:47 04/12/17 00:50 DC 04/12/17 01:01 25 MG Ketorolac Tromethamine (Toradol Inj) 30 mg NOW STAT IV 04/12/17 00:47 04/12/17 00:50 DC 04/12/17 01:01 30 MG ED Course 0045: The patient was evaluated in room A4. A complete history and physical exam was performed. 0047: Toradol 30 mg IV, Benadryl 25 mg IV, Reglan 10 mg IV, NSS 1000 ml @ 999 mls/hr IV. 0201: I reevaluated the patient. She is feeling much better. I discussed her results and discharge instructions and she verbalized complete understanding and agreement. Medical Decision I reviewed the patient's past medical history, medications, and the nursing notes as described above. The differential diagnoses considered include migraine headache, tension headache, intracranial hemorrhage, meningitis and dehydration. The patient is a 36 y/o woman with pmhx of migraines who presents to ED with 3 days of gradual onset MASC[place]RO, n/v, photophobia that is typical of her migraines per HPI. Arrives to ED and appears uncomfortable but in NAD. AFVSS. On exam, neck is supple, neuro intact. Patient reports sx are typical of her migraine and she was hoping to get help for the sx so she can make it to work in the morning. Considering sx typical for patient with benign exam no need for labs or imaging. Patient given migraine cocktail with complete resolution of sx. Patient thankful/appreciative. Findings and plan for follow-up d/w patient. Patient agreeable and d/c'd per discharge instructions. Medication Reconcilliation Current Medication List: was personally reviewed by me Blood Pressure Screening Patient's blood pressure: Elevated blood pressure Blood pressure disposition: Elevated BP felt to be situational Impression Primary Impression: Migraine headache Scribe Attestation The scribe's documentation has been prepared under my direction and personally reviewed by me in its entirety. I confirm that the note above accurately reflects all work, treatment, procedures, and medical decision making performed by me. Departure Information Dispostion Home / Self-Care Referrals No Doctor, Assigned (PCP) Patient Instructions ED Headache Migraine, My [facility] Additional Instructions Please follow up with your primary care physician in the next 1-3 days. Otherwise, your exam did not show signs of an emergent condition at this time. Return to the emergency department for worsening symptoms as described in the accompanying instructions.
[2017-04-12 02:30] VITALS: BP 131/88; PULSE 88; O2SAT 97
== END 2017-04-12 02:31 | disposition home or self-care (01) ==
LOC: C.EDB 00:26 → C.EDA 02:31
DX: G43.909 Migraine, unspecified, not intractable, without status migrainosus (principal); Z87.828 Personal history of other (healed) physical injury and trauma; Z87.81 Personal history of (healed) traumatic fracture; F17.200 Nicotine dependence, unspecified, uncomplicated; Z79.899 Other long term (current) drug therapy; Z88.0 Allergy status to penicillin; Z88.1 Allergy status to other antibiotic agents; Z80.9 Family history of malignant neoplasm, unspecified; Z82.0 Family history of epilepsy and other diseases of the nervous system

== ENCOUNTER 2017-05-05 16:24 | Emergency (ER) | payer OTHER ==
[~2017-05-05] VITALS: Ht 160 cm; Wt 53.8 kg
[2017-05-05 16:45] VITALS: TEMP 36.7; Ht 160 cm; Wt 53.8 kg
[2017-05-05] MEDS ORDERED: KETOROLAC TROMETHAMINE 60 MG/2 ML VIAL IM STA (17:09)
[2017-05-05] MEDS ORDERED: HYDROmorphone INJ 2 MG/ML SYR/VIAL IM STA (17:09)
[2017-05-05] MEDS ORDERED: PROMETHAZINE HCL INJ 50 MG/ML 1 ML VIAL/AMP IM STA (17:09)
--- NOTE | 2017-05-05 17:25 | EMERGENCY ROOM VISIT NOTE ---
ED Visit Note First contact with patient: 17:00 CHIEF COMPLAINT: "Headache". HISTORY OF PRESENT ILLNESS: This is a 36-year-old female patient presented to the emergency department via private vehicle with a gradual onset of a severe generalized headache that started yesterday around noon time. The patient states the migraine is similar to their typical migraines. There has been associated photophobia, phonophobia, nausea but no vomiting. The patient denies fever or chills recently, and there is no weakness or numbness of the extremities. There is no difficulty with speech or vision. No trauma to the head and no neck pain, abdominal small amount on the right side of the musculature. The pain is severe, constant, and it is slowly increasing in severity. The patient rates the pain as sharp and 9/10. The patient has taken her normal medications without relief. This is not the worst headache of the life and is similar to previous migraines. Previous imaging studies of the brain have been normal. REVIEW OF SYSTEMS: A review of systems was performed with positives and pertinent negatives listed in the history of present illness. All other systems were reviewed and are negative. ALLERGIES: As noted below MEDICATIONS: As noted below PMH: Migraine headaches SOCIAL HISTORY: Patient lives locally PHYSICAL EXAM: Vital Signs: Reviewed Nurse's notes, vital signs stable. GENERAL : 36-year-old female, who appears in pain, but non toxic in appearance and in no acute distress. MENTAL STATUS: Alert, oriented, and coherent. HEENT: Normocephalic. PERRLA. EOMI. Nares patent without nuchal rigidity. Tympanic membranes pearly melton without erythema or effusion bilaterally. Mucous membranes moist. NECK: Supple, no nuchal rigidity, nontender, no lymphadenopathy. HEART: Regular rhythm and normal rate without murmurs, ectopy, gallops, or rubs. LUNGS: Clear to auscultation bilaterally without wheezes, rales or rhonchi. No accessory muscle use. No retractions. SKIN: Normal. NEUROLOGICAL: Pupils are round, equal and react to light. The patient moves all extremities well and the gait is normal. EMERGENCY DEPARTMENT COURSE: I examined the patient. The patient is on a 2 narcotic injection per month treatment plan for their migraines. The patient was given 3 mg of Dilaudid, 50 mg of Phenergan, and 60 mg of Toradol all intramuscularly per their usual protocol. The patient was informed that her hospital is transitioning to a no narcotic chronic treatment plan, and was offered today different treatment modalities. She declined, noting that she would like she has had in the past. I informed her that although we will not be offered her narcotics for chronic pain in the future, she certainly is invited back to the emergency department for any new/concerning symptoms. The differential diagnosis includes acute intracranial bleed, meningitis, encephalitis, mass or mass effect, sinusitis, infection, tumor, headache, temporal arteritis and carbon monoxide exposure, and migraine. The patient was discharged home in stable condition with family member driving. In the evaluation and treatment of this patient, the following differential diagnoses were considered: Migraine Headache, Intracranial Hemorrhage, Subdural Hematoma, Subarachnoid Hemorrhage, Cerebral Aneurysm, Temporal/Giant Cell Arteritis, Tension Headache, Meningitis, Encephalitis, or Hydrocephalus. Problem List Medical Problems: (1) Bronchitis Status: Resolved (2) Contusion of fourth toe of right foot Status: Resolved (3) Fracture of fourth toe, right, closed Status: Resolved (4) Sinusitis Status: Resolved (5) Toothache Status: Resolved (6) Ulcer Status: Resolved Surgical Problems: (1) Tonsillectomy and adenoidectomy Status: Resolved Current/Historical Medications Scheduled Amitriptyline HCl (Amitriptyline HCl), 10 MG PO HS Bupropion (Wellbutrin), 75 MG PO BID Fluticasone Propionate (Nasal) (Flonase Allergy Relief), 1 SPRAY LAUREN DAILY Levonorgestrel (Iud) (Mirena), 20 MCG INT UTER UD Multiple Vitamin (Multi Vitamin Daily), 1 TAB PO DAILY Scheduled PRN Acetaminophen (Tylenol), 1,000 MG PO Q4H PRN for Headache or Pain Ajcdwgn-Bulkseqppyksc-Oggfalxo (Excedrin Migraine), 1 TAB PO UD PRN for Migraine Cyclobenzaprine Hcl (Flexeril), 10 MG PO HS PRN for Muscle Spasm Ibuprofen Tab (Advil), 400-800 MG PO Q6H PRN for Headache or Pain Ondasetron Odt (Zofran Odt), 4 MG SL Q8 PRN for Nausea Pseudoephedrine Hcl (Sudafed), 30-60 MG PO Q4H PRN for Headache Rizatriptan Benzoate (Rizatriptan Benzoate), 10 MG PO UD PRN for Migraine Sumatriptan Succinate (Imitrex Nasal [place]), 1 SPRAY NA UD PRN for Headache Allergies Coded Allergies: Amoxicillin (Verified Allergy, Intermediate, HIVES, 05/05/17) Penicillins (Verified Allergy, Intermediate, HIVES (AMOXIL), 05/05/17) Vital Signs Date Time Temp Pulse Resp B/P (MAP) Pulse Ox O2 Delivery O2 Flow Rate FiO2 05/05/17 17:43 67 16 110/55 96 05/05/17 16:45 36.7 67 16 110/55 96 Room Air Medications Administered Medications (Trade) Dose Ordered Sig/Kirby Route Start Time Stop Time Status Last Admin Dose Admin Hydromorphone HCl (Dilaudid Inj) 3 mg NOW STAT IM 05/05/17 17:09 05/05/17 17:11 DC 05/05/17 17:24 3 MG Promethazine HCl (Phenergan Inj) 50 mg NOW STAT IM 05/05/17 17:09 05/05/17 17:11 DC 05/05/17 17:23 50 MG Ketorolac Tromethamine (Toradol Inj) 60 mg NOW STAT IM 05/05/17 17:09 05/05/17 17:11 DC 05/05/17 17:23 60 MG Departure Information Impression Primary Impression: Headache Dispostion Home / Self-Care Condition GOOD Referrals Estelle Purvis (PCP) Patient Instructions My [facility] Additional Instructions You have been treated in the Emergency Department for a Headache. You have received pain medicine in the emergency department which impairs your ability to operate a vehicle. It is illegal for you to drive after receiving these medicines. For pain control, you can use the following cfxc-egw-jznwsuv medicines (if >12 yo): - Regular strength (325mg/tab) Tylenol (acetaminophen) 2 tabs every 4-6 hours as needed. Do not exceed 12 tablets in a 24 hour period. Avoid taking more than 3 grams (3000 mg) of Tylenol per day. This includes any other sources of acetaminophen you may take on a regular basis. - Regular strength (200 mg/tab) Advil (ibuprofen) 1-2 tabs every 4-6 hours as needed. Do not exceed a dose of 3200 mg per day. You should relax in a quiet, dark place for the rest of the day. Avoid any possible triggers including: cigarette smoke, caffeine, nicotine, chocolate, wine, beer, loud noises or music, or bright lights. You should schedule a follow-up appointment in 2-3 days with your Primary Care Provider or established Neurologist for further evaluation and treatment of your Headache. Return to the Emergency Department if your current symptoms worsen despite treatment course outlined above, or if you develop any of the following symptoms : intractable pain despite aforementioned treatment course, visual disturbances , loss of vision, unilateral weakness or facial drooping, slurring of speech, loss of coordination, or loss of consciousness. Please return to emergency department with any new/concerning symptoms. As we discussed we are more than happy to help you, but would not be able to provide narcotics in the future for migraines.
[2017-05-05 17:43] VITALS: BP 110/55; PULSE 67; O2SAT 96
== END 2017-05-05 17:44 | disposition home or self-care (01) ==
LOC: C.EDB 16:25 → C.EDD 17:44
DX: R51 Headache (principal); H53.149 Visual discomfort, unspecified; Z79.899 Other long term (current) drug therapy; Z97.5 Presence of (intrauterine) contraceptive device; Z87.09 Personal history of other diseases of the respiratory system; Z87.19 Personal history of other diseases of the digestive system; Z87.828 Personal history of other (healed) physical injury and trauma